=== PATIENT | female | born 1940 ===

== ENCOUNTER 2017-06-02 13:19 | Inpatient (IN) | payer MEDICARE, BC ==
[2017-06-02] MEDS ORDERED: Nitroglycerin 2% Ointment 1 INCH/1 GM Packet ONE (13:36)
[2017-06-02 13:44] LABS: #Basophils 0.1 thou/uL (0.0-0.2); #Lymphocytes 1.6 thou/uL (1.20-3.40); #Monocytes 0.4 thou/uL (0.11-0.59); #Neutrophils 6.1 thou/uL (1.40-6.50); %Basophils 0.8 % (0.0-1.0); %Eosinophils 0.1 % (0.0-10.0); %Lymphocytes 19.3 % (21.0-51.0); %Monocytes 5.1 % (0.0-10.0); %Neutrophils 74.7 % (42.0-75.0); Hemoglobin 15.6 g/dL (12.0-16.0); Mean Corpuscular HGB CONC 34.8 g/dL (32.0-36.0); Mean Corpuscular Hemoglobin 30.2 pg (27.0-31.0); Mean Corpuscular Volume 86.8 fl (81.0-99.0); Mean Platelet Volume 6.8 fL (7.4-10.4); Platelet Count 327 thou/uL (130-400); RBC Distribution Width 12.3 % (11.5-14.5); Red Blood Cell (RBC) Count 5.18 mill/uL (4.20-5.40); White Blood Cell (WBC) Count 8.2 thou/uL (4.8-10.8)
[2017-06-02 13:55] LABS: ALT (SGPT) 32 U/L (8-55); AST (SGOT) 80 U/L (5-34); Albumin 4.7 g/dL (3.4-4.8); Alkaline Phosphatase 118 U/L (40-150); Anion Gap 18 mmol/L (10-20); BUN (Urea Nitrogen) 13 mg/dL (9.8-20.1); Bilirubin, Total 0.6 mg/dL (0.2-1.2); CK (CPK) 804 U/L (29-168); Calc. Creatinine Clearance 0 mL/min (70-130); Calcium 10.7 mg/dL (7.8-10.44); Carbon Dioxide 26 mmol/L (23-31); Chloride 100 mmol/L (98-107); Estimated GFR-MDRD 39; Globulin 4.1 g/dL (2.4-3.5); Glucose 135 mg/dL (83-110); Potassium 3.6 mmol/L (3.5-5.1); Protein, Total 8.8 g/dL (6.0-8.3); Sodium 140 mmol/L (136-145)
[2017-06-02 14:04] LABS: CKMB 119.2 ng/mL (0-6.6); Critical Call Chem Troponin I 0; Troponin I 2.856 ng/mL (< 0.028)
--- NOTE | 2017-06-02 14:11 | RAD ---
CHEST 1 VIEW: HISTORY: Chest pain. FINDINGS: No comparison. Cardiac silhouette is magnified by projection. Pulmonary vasculature is unremarkable . Mediastinum is midline. There is no lobar consolidation or evidence of pneumothorax. Cardiac mon itor leads overlie the chest. IMPRESSION: No active cardiopulmonary abnormalities are demonstrated. POS: MARLENYH
[2017-06-02] MEDS ORDERED: Enoxaparin Sodium 80 MG/0.8 ML SYRINGE ONE (14:32)
[2017-06-02] MEDS ORDERED: Aspirin 81 mg Enteric Coated Tablet PO SCH (17:15)
[2017-06-02 18:02] VITALS: BMI 25.2
[2017-06-02 18:54] LABS: Troponin I 6.818 ng/mL (< 0.028)
[2017-06-02] MEDS ORDERED: Aspirin 325 MG TAB ONE (19:00)
[2017-06-02] MEDS: Acetaminophen 325 MG TAB PO PRN (19:07)
[2017-06-02] MEDS: Sodium Chloride 0.9% 1,000 ML IV SCH (19:08)
[2017-06-02] MEDS ORDERED: Communication Order-Pharmacy FS SCH (19:45)
[2017-06-02] MEDS ORDERED: Lisinopril 2.5 MG TAB PO SCH (20:30)
--- NOTE | 2017-06-02 20:56 | HP ---
DATE OF ADMISSION: 06/02/2017 CHIEF COMPLAINT: Chest pain. HISTORY OF PRESENT ILLNESS: This is a 77-year-old white female with no known past medical history ex cept for ovarian cancer in 1989. She was in her usual state of health at the [facility] yesterday, she d eveloped a sudden onset of chest pain at around 1:00 in the afternoon and she was trying to drive her self to [place] and the chest pain was gone completely, so she returned back home and early this mor colleen around 2:00 a.m., she developed another chest pain which was very severe of 7/10 in intensity, w as located in the left precordium associated with known some nausea, so she took aspirin and Aleve an d she waited out until morning at around 8:30 and called her daughter who came from [place] and she also asked her neighbor about the chest pain, so she was asked to go to the [place] [facility]. Porsha ent went to the [place] [facility] and over there, she had a thorough evaluation of the EKG which was unremarkable according to the ER physician, but did not have a direct communication with the ER phys lindy and there was an elevated troponin of 2.8, so the patient was immediately transferred to [facility] ER for further evaluation. Patient had a repeat troponin when she reached [facility] as a direct admit. She was admi tted to the tele floor and she was noted to have a troponin of 6.8. At this point, Cardiology was im mediately consulted. The patient was seen on the medical floor. She was alert and oriented. She di d not have any chest pain, no nausea, no vomiting, no diarrhea, no constipation at this time. PAST MEDICAL HISTORY: History of ovarian cancer in the past, status post radiation and ovarian remov al. PAST SURGICAL HISTORY: History ovariectomy in the past in 1989. SOCIAL HISTORY: The patient is not a known smoker, but she was exposed to passive smoking from her h usband and her parents. No history of alcohol or history of illicit drug use. FAMILY HISTORY: No significant family history of coronary artery disease or premature deaths in the family. REVIEW OF SYSTEMS: All 12 systems are reviewed with the patient thoroughly and found to be negative at this time except the ones described in HPI. The following complete review of systems was negative , unless otherwise mentioned in the HPI or below: Constitutional: Weight loss or gain, sense of wel l-being, ability to conduct usual activities, exercise tolerance. Skin/Breast: Rash, itching, changes in hair growth or loss, nail changes, breast lumps, tenderness, swelling, nipple discharge. Eyes: Vision, double vision, tearing, blind spots, pain. ENT/Mouth: Headaches (location, time of onset, duration, precipitating factors), vertigo, lightheade dness, injury. Vision, double vision, tearing, blind spots, pain, nose bleeding, colds, obstruction, discharge, dental difficulties, gingival bleeding, dentures, neck stiffness, pain, tenderness, sharon s in thyroid or other areas. Cardiovascular: Precordial pain, substernal distress, palpitations, sy ncope, dyspnea on exertion, orthopnea, nocturnal paroxysmal dyspnea, edema, cyanosis, hypertension, h eart murmurs, varicosities, phlebitis, claudication. Respiratory: Pain, shortness of breath, wheezi ng, stridor, cough, hemoptysis, fever or night sweats. Gastrointestinal: Poor appetite, dysphagia, indigestion, abdominal pain, heartburn, eructation, nausea, vomiting, hematemesis, jaundice, constipa tion, or diarrhea, abnormal stools (mary-colored, tarry, bloody, greasy, foul smelling), flatulence, hemorrhoids, recent changes in bowel habits. Genitourinary: Urgency, frequency, dysuria, nocturia, hematuria, polyuria, oliguria, unusual (or change in) color of urine, stones, hesitancy, change in si ze of stream, dribbling, acute retention or incontinence, libido, potency. Musculoskeletal: Pain, s welling, redness or heat of muscles or joints, limitation, of motion, muscular weakness, atrophy, aircraft quality control inspector mps. Neurologic/Psychiatric: Convulsions, paralyses, tremor, incoordination, parasthesias, difficulties w ith memory of speech, sensory or motor disturbances, or muscular coordination (ataxia, tremor), emoti onal problems, anxiety, depression, previous psychiatric care, unusual perceptions, hallucinations. Allergy/Immunologic: Skin rash, anemia, bleeding tendency, polydipsia, polyuria, intolerance to heat or cold. PHYSICAL EXAMINATION: VITAL SIGNS: Blood pressures are 141/74, heart rate is 88, respirations 20, saturation 96%. GENERAL: The patient is moderately built and moderately nourished. She does not appear to be in acu te distress at this time. She is alert, oriented x3. HEENT: Atraumatic, normocephalic, PERRLA. Extraocular muscles are intact. Oral mucosa pink and abdirashid st. CARDIOVASCULAR: S1, S2 normal. No murmurs, rubs or gallops. LUNGS: Bilateral air entry was equal. No wheezing, no crackles. ABDOMEN: Soft, nontender, no guarding, no rebound tenderness. Bowel sounds normal. MUSCULOSKELETAL: No calf tenderness. No pedal edema. No joint tenderness. No joint swelling. SKIN: No cyanosis, no erythema, no rash, no pallor. CENTRAL NERVOUS SYSTEM: Cranial nerve examination II-XII intact. No focal deficits were noted. PSYCHIATRIC: No signs of suicidal ideation. No signs of garrett. NECK: No thyromegaly. No JVD was noted. LABORATORY DATA: 1. Sodium 140, potassium 3.6, chloride is 100, bicarbonate is 26, BUN is 13, creatinine 1.31, blood sugar is 135, AST is 80, ALT is 32. 2. BNP was 106 and troponin most recent was 6.8. 3. WBC 8.2, hemoglobin 15.6, hematocrit is 44.9, platelets are 327. ASSESSMENT AND PLAN: 1. Ncl-IU-jkrvsig elevation myocardial infarction. 2. Acute chest pain. 3. Acute kidney injury. 4. Hypertension, undiagnosed. PLAN: 1. Plan is to start the patient on Lovenox 1 mg/kg b.i.d. and start the patient on Coreg at 3.125 mg p.o. b.i.d. and start her on aspirin right away. Cardiology has been consulted and they planned to do the cath in the morning. Plan to keep the patient n.p.o. at this time and will start the patient on IV fluids at 100 mL hour. 2. The patient has elevated blood pressures. We will start the patient on CORETTA inhibitor and lisinop ril to keep the blood pressure less than 125/80. 3. DVT prophylaxis. Lovenox as above. I spent 75 minutes with this patient.
[2017-06-02] MEDS ORDERED: Enoxaparin Sodium 80 MG/0.8 ML SYRINGE SC SCH (21:00)
[2017-06-02] MEDS ORDERED: Famotidine 20 MG TAB PO SCH (21:00)
[2017-06-02] MEDS: Carvedilol 3.125 MG TAB PO SCH (21:11)
[2017-06-02 21:44] LABS: Troponin I 9.474 ng/mL (< 0.028)
[2017-06-02] MEDS ORDERED: Nitroglycerin 2% Ointment 1 INCH/1 GM Packet TOP SCH (22:00)
--- NOTE | 2017-06-02 22:29 | CON ---
DATE OF CONSULTATION: 06/02/2017 DATE OF ADMISSION: 06/02/2017 INDICATION FOR CONSULTATION: A 77-year-old female with ljq-XV-qczffod-elevation myocardial infarctio n. HISTORY OF PRESENT ILLNESS: This is a very pleasant 77-year-old female who has had no previous cardi ac history was in [place] yesterday, when she noted she has some chest tightness. It kind of eased up a little bit. She drove home. By the time she got home, it was feeling good. She felt good for th e rest of the day and then about 2:00 a.m. this morning, she had more pain, which she describes as be ing a dull-type pressure. 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 Her EKG does not show any acute changes, some nonspecific change in the anterior leads however. Her cardiac enzymes show a tro ponin I of 2.8, which has increased up to 6.8, this is somewhat unusual; has an MB of 119 with a CPK of 804. 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 The troponin I is out of proportion to the MB. Otherwise, she is stable at this time and says she only feels susi e minimal discomfort. PAST MEDICAL HISTORY: Significant for the ovarian cancer in 1996 when she underwent surgery and chem otherapy, no radiation. She had a hysterectomy. SOCIAL HISTORY: She is a . She has 1 child, age 58, who is alive and well. She had no alcohol or tobacco abuse. 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 FAMILY HISTORY: Unremarkable for any early heart disease. MEDICATIONS: Only include supplements and aspirin every day. ALLERGIES: She is allergic to PEROXIDE. REVIEW OF SYSTEMS: Twelve-point review of systems is unremarkable. She says she is actually a very healthy person and has not had any significant discomfort like this before. PHYSICAL EXAMINATION: GENERAL: Reveals a well-developed, well-nourished female. VITAL SIGNS: Her blood pressure is elevated at 175/90, earlier was 181/88; heart rate is 81 and regu lar. She is afebrile. HEENT: Shows the head to be normocephalic and atraumatic. NECK: Carotid pulses are present. There were no bruits. There was no JVD. The thyroid was not enl arged. Her mucosa was pink and moist. CHEST: Clear to auscultation without rales, rhonchi, or wheezing. CARDIOVASCULAR: Reveals a regular rate and rhythm with normal S1, S2. There were no S3, S4. There were no significant murmurs, heaves, thrills, bruits, or rubs noted. Femoral pulses are present. ABDOMEN: Soft and nontender with positive bowel sounds. No organomegaly or masses are noted. EXTREMITIES: Showed no clubbing, cyanosis, or edema. Pedal pulses are present. Radial pulses are p resent. NEUROLOGIC: The patient is fully intact with normal strength and tone. SKIN: Warm and dry. LABORATORY DATA: Her EKG shows a normal sinus rhythm with nonspecific changes noted above. Her labo ratory data shows a hemoglobin of 15.6, creatinine is 1.31, potassium is 3.6. Her blood sugar was 13 5, calcium was elevated at 10.7. Her BNP was 107. Cardiac enzymes showed a CPK of 804, MB of 119. Troponin I is now increased up to 6.8. IMPRESSION: Probable zob-QH-nsouvti-elevation myocardial infarction. I have advised her to undergo cardiac catheterization tomorrow morning. She is very comfortable. At this time, we will continue t o watch her. She has been given Lovenox. We will continue these medications, Lovenox and aspirin. She will also need to have medications for her blood pressure. She has been started on Coreg 3.125 m g b.i.d. and she also has nitroglycerin. Should she become unstable tonight, she may need to go to t skill labor earlier. Otherwise, we will wait until tomorrow morning and she will need to undergo [facility] catheterization. I have explained the procedure and the risks to her to include bleeding, infec tion, possibly a myocardial infarction, CVA, renal insufficiency, allergic contrast reaction, and darshan n possibility of . She understands and agrees to proceed. We will plan for cardiac catheteriza tion tomorrow.
[2017-06-02 23:12] LABS: Hemoglobin 13.8 g/dL (12.0-16.0); Platelet Count 294 thou/uL (130-400)
[2017-06-02] MEDS: Morphine 4 MG/ML VIAL SLOW IVP PRN (23:40)
[2017-06-03 05:26] LABS: #Lymphocytes 1.1 thou/uL (1.20-3.40); #Monocytes 0.6 thou/uL (0.11-0.59); #Neutrophils 5.6 thou/uL (1.40-6.50); %Basophils 0.4 % (0.0-1.0); %Eosinophils 0.5 % (0.0-10.0); %Lymphocytes 15.2 % (21.0-51.0); %Monocytes 8.2 % (0.0-10.0); %Neutrophils 75.7 % (42.0-75.0); Hemoglobin 13.9 g/dL (12.0-16.0); Mean Corpuscular HGB CONC 33.3 g/dL (32.0-36.0); Mean Corpuscular Hemoglobin 30.3 pg (27.0-31.0); Mean Corpuscular Volume 90.8 fl (81.0-99.0); Mean Platelet Volume 6.6 fL (7.4-10.4); Platelet Count 297 thou/uL (130-400); RBC Distribution Width 12.7 % (11.5-14.5); Red Blood Cell (RBC) Count 4.58 mill/uL (4.20-5.40); White Blood Cell (WBC) Count 7.4 thou/uL (4.8-10.8)
[2017-06-03 05:36] LABS: Anion Gap 15 mmol/L (10-20); BUN (Urea Nitrogen) 14 mg/dL (9.8-20.1); Calc. Creatinine Clearance 60 mL/min (70-130); Calcium 9.4 mg/dL (7.8-10.44); Carbon Dioxide 23 mmol/L (23-31); Cardiac Risk 4.2 (Less than 4.5); Chloride 105 mmol/L (98-107); Cholesterol 255 mg/dl (< 200 Desired); Estimated GFR-MDRD 62; Glucose 114 mg/dL (83-110); HDL Cholesterol 61 mg/dL (>60 Neg Risk); LDL Cholesterol, Calculated 163 mg/dL; Potassium 3.7 mmol/L (3.5-5.1); Sodium 139 mmol/L (136-145); Triglycerides 153 mg/dL (Less than 150)
[2017-06-03] MEDS ORDERED: Lidocaine 1% (PF) 30 ML VIAL ONE (06:01)
[2017-06-03] MEDS: Carvedilol 3.125 MG TAB PO SCH ×2 (06:02→19:58)
[2017-06-03] MEDS: Lisinopril 2.5 MG TAB PO SCH (06:02)
[2017-06-03] MEDS: Sodium Chloride 0.9% 1,000 ML IV SCH ×2 (06:03→17:48)
[2017-06-03 07:05] LABS: Troponin I 14.925 ng/mL (< 0.028)
[2017-06-03] MEDS ORDERED: Nitroglycerin 100MG/250ML BOT 250 ML ONE (07:06)
[2017-06-03] MEDS ORDERED: Heparin 10,000 UNITS/1 ML VIAL ONE (07:06)
[2017-06-03] MEDS ORDERED: Verapamil 5 MG/2 ML VIAL ONE (07:06)
[2017-06-03] MEDS ORDERED: Sodium Chloride 0.9% 200 ML IV SCH (08:01)
[2017-06-03] MEDS ORDERED: Acetaminophen/Codeine 30-300mg Tablet PO PRN ×2 (08:01)
[2017-06-03] MEDS ORDERED: Nitroglycerin 0.4 MG TAB (25 Tab Bottle) SL PRN (08:01)
[2017-06-03] MEDS ORDERED: traMADol HCl 50 MG TAB PO PRN (08:01)
[2017-06-03] MEDS ORDERED: Aspirin 325 MG TAB PO SCH (09:00)
[2017-06-03] MEDS ORDERED: Enoxaparin Sodium 60 MG/0.6 ML SYRINGE SC SCH (09:00)
[2017-06-03] MEDS ORDERED: Prevnar 13-Val Conj/PF 0.5 ML SYRINGE IM ONE (09:00)
[2017-06-03] MEDS ORDERED: Enoxaparin Sodium 40 MG/0.4 ML SYRINGE SC SCH (09:00)
[2017-06-03] MEDS ORDERED: Enoxaparin Sodium 80 MG/0.8 ML SYRINGE SC SCH (09:00)
[2017-06-03] MEDS ORDERED: Iopamidol 370 76% 100 ML VIAL ONE (09:31)
[2017-06-03] MEDS ORDERED: Communication Order-Pharmacy FS SCH (18:18)
--- NOTE | 2017-06-03 19:10 | CON ---
DATE OF CONSULTATION: 06/03/2017 REQUESTING PHYSICIAN: Gabby Montanez M.D. CHIEF COMPLAINT: Chest pain. HISTORY OF PRESENT ILLNESS: The patient is a 77-year-old woman, who is a long- term survivor of stage III ovarian cancer, but has scant other past medical history. 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 The day before yesterday while at buddhism, she began developing a chest pressure or tightness. She left [place] with an intention of going to the hospital in [place], but before she made it there her discomfort had resolved and she decided to go on home. About 2:00 yesterday morning; however, she awoke with another episode of chest pressure that lasted several hours. 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 Upon arrival, her troponins were already positive and she was transferred here for further evaluation. While her initial CPK was around 800, her troponin is only 2.856. As of about 4 :30 of this morning, it was still rising, but was still only at 14.925. She has had so far an uncomplicated post-infarction course. She denies any previous such episodes. PAST MEDICAL HISTORY: Significant for ovarian cancer. She underwent hysterectomy and oophorectomy with chemotherapy and radiation therapy in 1989. CURRENT MEDICATIONS: Her current medicines are Adult Aspirin a day, Lipitor 20 mg at bedtime, Coreg 3.125 mg b.i.d., lisinopril 2.5 mg a day, Lovenox 70 mg subcutaneously b.i.d., Pepcid 20 mg at bedtime and p.r.n. morphine and nitroglycerin. SOCIAL HISTORY: Her smoked, but he at around that same time and she has not been exposed to secondhand smoke since then and does not smoke herself. MEDICATIONS: The only medication that she takes is aspirin a day and some vitamin supplements. ALLERGIES: She denies any medical allergies. FAMILY HISTORY: Both of her parents of cancer. She has no known history of premature coronary artery disease. REVIEW OF SYSTEMS: Negative for any transient eye, speech, facial or extremity symptoms consistent with transient ischemic attacks. Negative for claudication. Negative for shortness of breath. Negative for any weight loss. Negative for any development of adenopathy or other lumps or bumps popping up anywhere. She has some mild numbness in her hands and her feet that she ascribes to her Taxol chemotherapy. PHYSICAL EXAMINATION: GENERAL: She is a healthy appearing woman, in no distress. VITAL SIGNS: Heart rate 73, blood pressure 156/74, height is 5 feet 6 inches, weight is 156-1/4 pounds, room air O2 sats have been in the mid to high 90s. NECK: No JVD, no carotid bruits. LUNGS: Clear to auscultation. CARDIOVASCULAR: She has regular rate and rhythm without murmur or gallop. ABDOMEN: Soft and nontender with a well healed surgical scar in the vertical midline. EXTREMITIES: She has a pressure dressing on the right wrist. She has palpable left radial bilateral femoral, bilateral dorsalis pedis and bilateral posterior tibial pulses. She has no obvious varicosities. No clubbing, cyanosis or edema. NEUROLOGIC: Grossly nonfocal. LABORATORY DATA: White count of 8.2, hemoglobin 15.6, hematocrit 44.9, platelets 327,000. Sodium 140, potassium 3.6, chloride 100, CO2 of 26, glucose 135, BUN 13, creatinine 1.31. Overnight, her BUN fell to 14 and creatinine to 0.84. LFTs were normal. Protein is 8.8, albumin 4.7, and calcium 10.7. Her initial CPK was 804 and CK-MB was 119.2. Troponin is 2.856. BNP was 107.6 that was roughly 1:30 in the afternoon. On Friday at about 6:00 p.m., her troponin was 6.818, around 9:00 p.m. it was 9.474, and about 4:30 this morning it was 14.925. Fasting lipids showed triglycerides 153, cholesterol 255, LDL 163, HDL 61. IMAGING: Her EKG was sinus rhythm with some mild ST depression in leads V2 through V4. Her chest x-ray shows relatively small heart, sharp aortic knob without obvious calcifications and perhaps some mild-moderate edema. Her cardiac catheterization shows right dominant system with a normal left main. She has mild ostial circumflex disease, but then her circumflex occludes just beyond a very small OM1 followed by an atrial branch. One can on followup films see a little bit of hang up of dye distally. The LAD has a relatively high good sized first diagonal that comes off at about the level of the first septal tool repair technician with about a 60% to 70%, LAD lesion at that same level in about 60% to 70% proximal lesion in that first diagonal. There is about 70% or 80% lesion in the second diagonal at its ostium and about of 60% lesion in its mid portion. The second diagonal arborizes in multiple small branches. There is some mild disease in the LAD just beyond that second diagonal. The right coronary is a very large vessel that gives rise to large PDA and posterolateral system fairly proximally. There is a long 40 % to 50% lesion in between the acute marginals. There is some mild luminal irregularity in the mid portion beyond that. Distally, there is a long 40% or 50% lesion prior to coming to the tracks. LVEF is around 60% with some inferoapical and perhaps some distal septal akinesis. IMPRESSION AND RECOMMENDATIONS: A 3-vessel coronary disease with preserved left ventricular function in spite of her recent infarction. Left ventricular end-diastolic pressure is only about 10 in spite of the picture of edema on her chest x-ray. I think she would be a good candidate for surgical revascularization and will schedule her in next elective opening. EDISON
[2017-06-03] MEDS ORDERED: Atorvastatin Calcium 20 MG TAB PO SCH (21:00)
--- NOTE | 2017-06-03 21:31 | PDOC.PN ---
- Subjective Encounter Start Date: 06/03/17 Encounter Start Time: 17:00 Patient seen and examined. No new complaints. No overnight events. No CP/SOB. s/ p Cath - Objective Resuscitation Status: Resuscitation Status FULL:Full Resuscitation MAR Reviewed: Yes Vital Signs & Weight: Vital Signs (12 hours) Temp Pulse Resp BP Pulse Ox 06/03/17 19:58 98.4 F 93 16 148/74 H 95 06/03/17 11:56 98.6 F 73 16 156/74 H 94 L Weight Weight 156 lb 3.2 oz I&O: 06/02/17 06/03/17 06/04/17 06:59 06:59 06:59 Intake Total 1331.5 Output Total 600 Balance 731.5 Result Diagrams: 06/03/17 21:52 06/03/17 04:26 Additional Labs: Laboratory Tests 06/03/17 06/03/17 06/03/17 04:26 04:26 04:26 Magnesium 2.0 Troponin I 14.925 H* Triglycerides 153 H Cholesterol 255 H Radiology Reviewed by me: Yes (CXR - Negative) EKG Reviewed by me: Yes (Tele SR) Phys Exam - Physical Examination Constitutional: NAD HEENT: PERRLA, sclera anicteric Neck: no nodes, no JVD, supple Respiratory: no wheezing, no rales, no rhonchi, clear to auscultation bilateral Cardiovascular: RRR, no rub no heaves/pulsations Gastrointestinal: soft, non-tender, no distention, positive bowel sounds Musculoskeletal: no edema, pulses present Neurological: non-focal, normal sensation, moves all 4 limbs Psychiatric: normal affect, A&O x 3 Skin: no rash Dx/Plan - Plan DVT proph w/SCDs IMPRESSION: 1. NSTEMI 2. Dyslipidemia 3. HTN 4. JOSIAH/CKD 2 - improving PLAN: * s/p Cardiac Cath * CT consulted for 3V disease * Cont to monitor * Cont current meds as below * Cont Betablockers/ACEI/Statins Review of Systems - Review of Systems Respiratory: negative: Cough, Dry, Shortness of Breath, Hemoptysis, SOB with Excertion, Pleuritic Pain, Sputum, Wheezing Cardiovascular: negative: chest pain, palpitations, orthopnea, paroxysmal nocturnal dyspnea, edema, light headedness, other Gastrointestinal: negative: Nausea, Vomiting, Abdominal Pain, Diarrhea, Constipation, Melena, Hematochezia, Other - Medications/Allergies Allergies/Adverse Reactions: Allergies Allergy/AdvReac Type Severity Reaction Status Date / Time No Known Drug Allergies Allergy Verified 06/02/17 17:08 Medications: Current Medications Carvedilol (Coreg) 3.125 mg PO BID PENNY Stop: 06/04/17 12:00 Last Admin: 06/03/17 19:58 Dose: 3.125 mg Lisinopril (Zestril) 2.5 mg PO DAILY PENNY Stop: 06/04/17 12:00 Last Admin: 06/03/17 06:02 Dose: 2.5 mg Miscellaneous Information (Communication Order-Pharmacy) 1 each FS ONE PENNY Stop: 06/04/17 10:00
[2017-06-03 22:09] LABS: Hemoglobin 14.1 g/dL (12.0-16.0); Platelet Count 312 thou/uL (130-400)
[2017-06-04] MEDS: Acetaminophen 325 MG TAB PO PRN (03:10)
[2017-06-04] MEDS ORDERED: Morphine 4 MG/ML VIAL ONE (04:06)
[2017-06-04] MEDS: Morphine 4 MG/ML VIAL SLOW IVP PRN (04:11)
[2017-06-04] MEDS ORDERED: Nitroglycerin 0.4 MG TAB (25 Tab Bottle) ONE (04:33)
[2017-06-04] MEDS: Nitroglycerin 0.4 MG TAB (25 Tab Bottle) SL PRN ×2 (04:35→04:43)
[2017-06-04] MEDS ORDERED: CEFAZOLIN/Water 2 GM/20 ML SYRINGE SLOW IVP SCH (06:45)
[2017-06-04] MEDS ORDERED: Nitroglycerin 50 MG/250 ML BOT 250 ML IVPB SCH (06:45)
[2017-06-04] MEDS ORDERED: Heparin 10,000 UNITS/1 ML VIAL 30,000 UNITS in Sodium Chloride 0.9% 1,000 ML FS SCH (06:45)
[2017-06-04] MEDS: Carvedilol 3.125 MG TAB PO SCH (06:58)
[2017-06-04] MEDS: Lisinopril 2.5 MG TAB PO SCH (06:58)
[2017-06-04 08:03] LABS: INR-International Normal Ratio 1.2; PTT 33.8 SEC (22.9-36.1)
[2017-06-04] MEDS ORDERED: Papaverine 60 MG/2 ML VIAL ONE (12:36)
[2017-06-04] MEDS ORDERED: Heparin 30,000 units/30 ml VIAL ONE (12:36)
[2017-06-04] MEDS ORDERED: PROPOFOL 200 MG/20 ML VIAL ONE (12:36)
[2017-06-04] MEDS ORDERED: Sodium Bicarb 50 MEQ/50 ML VIAL ONE (12:36)
[2017-06-04] MEDS ORDERED: Cardioplegic Soln 1,000 ML BAG ONE (12:36)
[2017-06-04] MEDS ORDERED: Vecuronium Bromide 20 MG VIAL ONE (12:36)
[2017-06-04] MEDS ORDERED: PHENYLEPHRINE-NS 100 MCG/ML 10 ML SYRINGE ONE (12:36)
[2017-06-04] MEDS ORDERED: Aminocaproic Acid 5 GM/20 ML VIAL ONE (12:36)
[2017-06-04] MEDS ORDERED: Lidocaine 1% PF 5 ML VIAL ONE (12:36)
--- NOTE | 2017-06-04 13:25 | CON ---
DATE OF CONSULTATION: 06/04/2017 HISTORY OF PRESENT ILLNESS: Ms. Garcia is a very pleasant 77-year-old female. She is tentatively o n schedule for coronary artery bypass grafting today. I am seeing her because of her presence of the Critical Care Unit. She presented on 06/02/2017 with chest discomfort that was waxing and waning. She came in at 2:00 in the morning. EKG did not show any ST elevation. She has undergone cardiac catheterization. Surgery has been recommended. She is on the schedule for surgery later today. She denies having any chest discomfort at this time. PAST MEDICAL HISTORY: Significant for, 1. Ovarian cancer treated with surgery and chemotherapy. 2. Status post hysterectomy. SOCIAL HISTORY: She is not a smoker, not a drinker. She does not use drugs. FAMILY HISTORY: She lost her . She has one child, who is healthy. MEDICAITONS: She is on no medications except aspirin prior to admission. ALLERGIES: She reports no medication allergies. REVIEW OF SYSTEMS: Twelve point review of systems is otherwise negative. PHYSICAL EXAMINATION: GENERAL: She is flat in bed, in no distress. VITAL SIGNS: Heart rate is 72, blood pressure 147/74, respiratory rate 16, oximetry is 95. HEENT: Pupils are equal. Sclerae anicteric. NECK: Supple, no lymphadenopathy. LUNGS: Clear. HEART: Regular rhythm. S1 and S2 are normal. I do not hear a murmur. ABDOMEN: Soft and nontender. EXTREMITIES: No clubbing, cyanosis, or edema. LABORATORY DATA: White count 7.4, hemoglobin 13.9, platelets 297. Sodium 139, potassium 3.7, chloride 105, bicarbonate 23, BUN 14, creatinine 0.8, glucose 114. Tropon in got up to 14.9, triglycerides 153, cholesterol 255, LDL 163, HDL 61. IMPRESSION: Coronary artery disease, tentatively on schedule for bypass surgery today. She appears to be stable and pain free at this point in time. This is a 50 minute consult, greater than 50% of the time was spent on the unit coordinating care.
[2017-06-04] MEDS ORDERED: Vecuronium 10 MG VIAL ONE (15:59)
[2017-06-04] MEDS ORDERED: Midazolam HCl 5 mg/5 ml Vial ONE (15:59)
[2017-06-04] MEDS ORDERED: Nitroglycerin 50 MG/250 ML BOT 250 ML ONE (16:00)
[2017-06-04] MEDS ORDERED: Norepinephrine 8 MG/0.9% NS 250 ML ONE (16:00)
[2017-06-04] MEDS ORDERED: Fentanyl 250 MCG/5 ML VIAL ONE (16:03)
[2017-06-04] MEDS ORDERED: Phenylephrine HCL 10 MG/ML VIAL ONE (16:03)
[2017-06-04] MEDS ORDERED: niCARdipine HCl 25 MG in Sodium Chloride 0.9% 250 ML 240 ML IVPB PRN (16:06)
[2017-06-04] MEDS ORDERED: Norepinephrine 8 MG/0.9% NS 250 ML IVPB PRN (16:06)
[2017-06-04] MEDS ORDERED: Nitroglycerin 50 MG/250 ML BOT 250 ML IVPB PRN (16:06)
[2017-06-04] MEDS ORDERED: Ondansetron HCl/PF 4 MG/2 ML Vial IVP PRN (16:06)
[2017-06-04] MEDS ORDERED: Bisacodyl 10 MG SUPP PR PRN (16:06)
[2017-06-04] MEDS ORDERED: Mag-Al 1200 mg/1200 mg/30 ML UDCUP PO PRN (16:06)
[2017-06-04] MEDS ORDERED: Acetaminophen 325 MG TAB PO PRN (16:06)
[2017-06-04] MEDS ORDERED: Fentanyl 100 MCG/2 ML VIAL SLOW IVP PRN ×2 (16:06)
[2017-06-04] MEDS ORDERED: Hetastarch 6% 500 ML 500 ML IVPB PRN (16:06)
[2017-06-04] MEDS ORDERED: hydrALAZINE 20 MG/ML VIAL SLOW IVP PRN (16:06)
[2017-06-04] MEDS ORDERED: Promethazine HCl 25 MG/ML VIAL IM PRN (16:06)
[2017-06-04] MEDS ORDERED: Post-Op Insulin Drip Protocol IVPB ONE (16:06)
[2017-06-04] MEDS ORDERED: Guaifenesin DM 100-10/5 ML UDCUP PO PRN (16:06)
[2017-06-04] MEDS ORDERED: Dextrose 5% in Water 1,000 ML IV PRN (16:21)
[2017-06-04] MEDS ORDERED: Dextrose 50% Abboject 50 ML SYRINGE SLOW IVP PRN (16:21)
[2017-06-04] MEDS ORDERED: Ketorolac Tromethamine 30 MG/ML VIAL IVP SCH (18:00)
[2017-06-04] MEDS ORDERED: Albumin 5% 500 ML ONE (18:29)
[2017-06-04] MEDS: Atorvastatin Calcium 20 MG TAB PO SCH (21:05)
--- NOTE | 2017-06-04 21:06 | PDOC.PN ---
- Subjective Encounter Start Date: 06/04/17 Encounter Start Time: 14:50 Patient seen and examined. No new complaints. Overnight events noted. On NTG drip for CP - Objective Resuscitation Status: Resuscitation Status FULL:Full Resuscitation MAR Reviewed: Yes Vital Signs & Weight: Vital Signs (12 hours) Temp Pulse Resp Pulse Ox 06/04/17 16:00 98.7 F 06/04/17 11:00 98.4 F 06/04/17 09:39 98.9 F 70 18 100 Weight Weight 160 lb 3.2 oz Most Recent Monitor Data Heart Rate from ECG 79 NIBP 150/68 NIBP BP-Mean 91 Respiration from ECG 16 SpO2 95 I&O: 06/03/17 06/04/17 06/05/17 06:59 06:59 06:59 Intake Total 1331.5 1200 36 Output Total 600 1100 400 Balance 731.5 100 -364 Result Diagrams: 06/05/17 04:40 06/05/17 03:45 Additional Labs: Accuchecks 06/04/17 06/04/17 06/04/17 19:40 18:50 17:51 POC Glucose 139 H 128 H 117 H 06/04/17 17:05 POC Glucose 111 H EKG Reviewed by me: Yes (Tele SR) Phys Exam - Physical Examination Constitutional: NAD Respiratory: no wheezing, no rales, no rhonchi Cardiovascular: RRR, no rub Gastrointestinal: soft, non-tender, positive bowel sounds Musculoskeletal: no edema Neurological: moves all 4 limbs Dx/Plan - Plan cont current plan of care, DVT proph w/SCDs IMPRESSION: 1. NSTEMI 2. Dyslipidemia 3. HTN 4. JOSIAH/CKD 2 - improving PLAN: * for CABG today * On NTG drip * Cont to monitor * Cont current meds as below * Cont Betablockers/ACEI/Statins Review of Systems - Review of Systems Respiratory: negative: Cough, Dry, Shortness of Breath, Hemoptysis, SOB with Excertion, Pleuritic Pain, Sputum, Wheezing Cardiovascular: chest pain (earlier today). negative: palpitations, orthopnea, paroxysmal nocturnal dyspnea, edema, light headedness, other - Medications/Allergies Allergies/Adverse Reactions: Allergies Allergy/AdvReac Type Severity Reaction Status Date / Time No Known Drug Allergies Allergy Verified 06/02/17 17:08 Medications: Current Medications Acetaminophen (Tylenol) 650 mg PO Q6H PRN PRN Reason: Headache/Fever Or Mild Pain Hydrocodone Bitart/Acetaminophen ([place] 5/325) 1 tab PO Q4H PRN PRN Reason: Moderate Pain (4-6) Hydrocodone Bitart/Acetaminophen ([place] 5/325) 2 tab PO Q4H PRN PRN Reason: Severe Pain (7-10) Al Hydroxide/Mg Hydroxide (Maalox) 30 ml PO Q4H PRN PRN Reason: Indigestion Albumin Human (Albumin 5%) 12.5 gm IVPB Q6H PRN PRN Reason: To Maintain SBP> 90 mmHG Stop: 06/05/17 16:07 Albumin Human (Albumin 5%) 25 gm IVPB Q6H PRN PRN Reason: To Maintain SBP > 90 mmHG Stop: 06/05/17 16:07 Albuterol/Ipratropium (Duoneb) 3 ml NEB [id number] PRN PRN Reason: SHORTNESS OF BREATH Aspirin (Aspirin) 325 mg PO DAILY [facility] Atorvastatin Calcium (Lipitor) 20 mg PO HS PENNY Last Admin: 06/04/17 21:05 Dose: Not Given Bisacodyl (Dulcolax) 10 mg PO Q12H PRN PRN Reason: Constipation Bisacodyl (Dulcolax) 10 mg IN Q12H PRN PRN Reason: Constipation Dextrose/Water (Dextrose 50%) 25 gm SLOW IVP PRN PRN PRN Reason: PER HYPOGLYCEMIC PROTOCOL Famotidine (Pepcid) 20 mg SLOW IVP Q12HR [facility] Fentanyl (Sublimaze) 25 mcg SLOW IVP Q2H PRN PRN Reason: Moderate Pain (4-6) Stop: 06/06/17 16:06 Fentanyl (Sublimaze) 50 mcg SLOW IVP Q2H PRN PRN Reason: Severe Pain (7-10) Stop: 06/06/17 16:06 Glucagon (Glucagon) 1 mg SC PRN PRN PRN Reason: PER HYPOGLYCEMIC PROTOCOL Guaifenesin/Dextromethorphan (Robitussin Dm) 15 ml PO Q4H PRN PRN Reason: Cough Hydralazine HCl (Apresoline) 10 mg SLOW IVP Q6H PRN PRN Reason: To Maintain SBP< 140mmHG Nitroglycerin/Dextrose (Nitroglycerin 50 Mg/250 Ml Bot) 250 mls @ 0 mls/hr IVPB INF PENNY; As Directed PRN Reason: Protocol Last Admin: 06/04/17 07:15 Dose: 250 mls Hetastarch/Sodium Chloride (Hespan) 500 mls @ 0 mls/hr IVPB PRN PRN; As Directed PRN Reason: To Maintain SBP > 90mmHg Stop: 06/05/17 16:06 Norepinephrine Bitartrate (Levophed) 250 mls @ 0 mls/hr IVPB PRN PRN; Protocol ; Titrate PRN Reason: To maintain SBP > 90 mmHG Nicardipine HCl 25 mg/ Sodium (Chloride) 250 mls @ 0 mls/hr IVPB INF PRN; Protocol; Titrate PRN Reason: To Maintain SBP< 140mmHG Nitroglycerin/Dextrose (Nitroglycerin 50 Mg/250 Ml Bot) 250 mls @ 0 mls/hr IVPB PRN PRN; Protocol; Titrate PRN Reason: To Maintain SBP< 140mmHG Sodium Chloride (Normal Saline 0.9%) 1,000 mls @ 75 mls/hr IV .[id number] [facility] Insulin Human Regular 100 (units/ Sodium Chloride) 101 mls @ 0 mls/hr IVPB INF PENNY; As Directed PRN Reason: Protocol Dextrose/Water (D5w) 1,000 mls @ 0 mls/hr IV INF PRN; As Directed PRN Reason: PRN HYPOGLYCEMIC PROTOCOL Insulin Human Regular (Humulin R) 0 units SC Q4H PRN; Protocol PRN Reason: POST OP SLIDING SCALE Ketorolac Tromethamine (Toradol) 15 mg IVP Q6HR [facility] Stop: 06/05/17 12:01 Morphine Sulfate (Morphine) 2 mg SLOW IVP Q15MIN PRN PRN Reason: Severe Pain (7-10) Ondansetron HCl (Zofran) 4 mg IVP Q6H PRN PRN Reason: Nausea/Vomiting Potassium Chloride (Kcl) 20 meq IVPB PRN PRN PRN Reason: K level </= 4.0 Promethazine HCl (Phenergan) 6.25 mg IM Q4H PRN PRN Reason: Nausea/Vomiting Sodium Chloride (Flush - Normal Saline) 10 ml IVF Q12HR [facility] Last Admin: 06/04/17 08:37 Dose: 10 ml Sodium Chloride (Flush - Normal Saline) 10 ml IVF PRN PRN PRN Reason: Saline Flush
--- NOTE | 2017-06-04 21:34 | RAD ---
CHEST ONE VIEW 06/04/17 HISTORY: Needle count off. COMPARISON: 06/02/17 FINDINGS: There appears to be an endotracheal tube just proximal to the clavicle. There is what is presumed to be a scope in the thoracic esophagus. Sternotomy wires, mediastinal drainage catheter, two left sided chest tubes are noted. Surgical clips project over the left hilum. Left sided transvenous pacemaker is identified. No obvious suture is appreciated. No pneumothorax. IMPRESSION: Postoperative changes as above. An obvious retained suture needle is not appreciated. POS: [facility]
[2017-06-04 21:51] LABS: INR-International Normal Ratio 1.5; PTT 32.6 SEC (22.9-36.1); Prothrombin Time 18.4 SEC (12.0-14.7)
[2017-06-04 21:53] LABS: #Eosinphils 0.1 thou/uL (0.0-0.7); #Monocytes 0.9 thou/uL (0.11-0.59); #Neutrophils 11.9 thou/uL (1.40-6.50); %Eosinophils 0.5 % (0.0-10.0); %Lymphocytes 6.8 % (21.0-51.0); %Monocytes 6.3 % (0.0-10.0); %Neutrophils 86.3 % (42.0-75.0); Hemoglobin 10.3 g/dL (12.0-16.0); Mean Corpuscular HGB CONC 33.3 g/dL (32.0-36.0); Mean Corpuscular Hemoglobin 30.8 pg (27.0-31.0); Mean Corpuscular Volume 92.5 fl (81.0-99.0); Platelet Count 175 thou/uL (130-400); RBC Distribution Width 12.4 % (11.5-14.5); Red Blood Cell (RBC) Count 3.34 mill/uL (4.20-5.40); White Blood Cell (WBC) Count 13.8 thou/uL (4.8-10.8)
--- NOTE | 2017-06-04 21:55 | RAD ---
ONE VIEW CHEST: 06/04/17 COMPARISON: 06/04/17 at 8:20 p.m. HISTORY: Status post open heart surgery. FINDINGS: There has been interval removal of what is presumed to be a device in the esophagus. Endotracheal tub e is demonstrated. Stable left sided central venous catheter appears stable. Mediastinal drainage cat heter and two separate left sided chest tubes. Sternotomy wires and mediastinal clips are identified. There are pleural and parenchymal changes in the left hemithorax. Linear opacities projecting over t he right heart border as well as the midline of the cardiac silhouette are presumed to be due to sutu re material/epicardial pacer wires. Horizontally oriented as well as vertically oriented linear densities project over the left and right epigastric region. Correlate clinically. IMPRESSION: 1. Findings consistent with recent open heart surgery. 2. Pleural and parenchymal changes in the left lung base. 3. Linear opacities in the epigastric region. Correlate clinically. Code T POS: [facility]
[2017-06-04 22:01] LABS: Actual Bicarbonate (HCO3a) 19.7 mEq/L (22-26); Base Excess (BEa) -3.8 mEq/L (0 (+/-) 2.5); CO2 Tension 30.3 mmHg (35.0-45.0); O2 Tension (PaO2) 88.2 mmHg (80.0-100.0); pH, Arterial 7.43 (7.35-7.45)
[2017-06-04 22:01] LABS: Anion Gap 11 mmol/L (10-20); BUN (Urea Nitrogen) 15 mg/dL (9.8-20.1); Calc. Creatinine Clearance 76 mL/min (70-130); Calcium 8.7 mg/dL (7.8-10.44); Carbon Dioxide 22 mmol/L (23-31); Chloride 114 mmol/L (98-107); Estimated GFR-MDRD 79; Glucose 139 mg/dL (83-110); Potassium 3.6 mmol/L (3.5-5.1); Sodium 143 mmol/L (136-145)
[2017-06-04 22:02] LABS: ALV-art Gradient 298.725 (0-20); Calcium, Ionized 1.3 mmol/L (1.12-1.30); Hematocrit-ABG 29.1 % (36.0-47.0); Hemoglobin (Hb) 10.1 g/dL (12.0-16.0); Puncture Site LINE
[2017-06-04] MEDS: Famotidine 40 MG/4 ML VIAL SLOW IVP SCH (22:44)
[2017-06-04] MEDS: Ketorolac Tromethamine 30 MG/ML VIAL IVP SCH (22:45)
[2017-06-04] MEDS: Sodium Chloride 0.9% 1,000 ML IV SCH (22:45)
[2017-06-04] MEDS: Potassium Chloride 20 MEQ/100 ML PREMIX BAG IVPB PRN (23:01)
[2017-06-05] MEDS: Insulin Regular 300 UNITS/3 ML VIAL SC PRN ×2 (00:17→03:46)
[2017-06-05] MEDS: Morphine 4 MG/ML VIAL SLOW IVP PRN ×2 (01:30→02:57)
--- NOTE | 2017-06-05 01:42 | OP ---
DATE OF PROCEDURE: 06/04/2017 PROCEDURES PERFORMED: Left subclavian central line placement, coronary artery bypass grafting x5 wit h left internal mammary artery to the distal LAD, reverse greater saphenous vein graft from the aorta to the distal RCA into the obtuse marginal and sequential reverse greater saphenous vein graft from the OM graft to the first diagonal to the second diagonal. PREOPERATIVE DIAGNOSIS: Coronary artery disease with post-infarction angina. POSTOPERATIVE DIAGNOSIS: Coronary artery disease with post-infarction angina. SURGEON: Paul Sher M.D. LLAMA FARMER: Dr. Cadet. ANESTHESIA: General endotracheal anesthesia. INDICATIONS: The patient is a 77-year-old woman who is a long-term survivor of ovarian cancer, but o bryant has scant past medical history. She had chest pressure for about 30 minutes that resolved a nd then she awoke in the tank cooper hours the following day with chest pain that persisted and did not subside for several hours. She ruled in for myocardial infarction, cardiac catheterization demo nstrated severe 3-vessel coronary disease and it was recommended that she undergo coronary artery byp ass grafting. Those arrangements were made and this morning she awoke again with chest pain that was brought under control with nitroglycerin. She was transferred to the ICU for IV nitroglycerin, main tained stability while arrangements were made for transporting her to the OR in turn. FINDINGS: Pump time 106 minutes. Cross clamp time 64 minutes. Good quality ROXANNE. The saphenous vei n was somewhat thin walled and became somewhat small and very thin-walled at the midcalf. The distal LAD was about 2 mm vessel as were the first and second diagonals. The second diagonal had scattered plaque in it. The obtuse marginal passed through an area of hemorrhage in the epicardium. It was a bout a 1.5-mm vessel. The right coronary was about a 3-mm vessel. The pericardium was loosely tacke d across the heart. NARRATIVE REPORT: After informed consent was obtained, the patient was taken to the operating room a nd placed in supine position on the operating table. After induction of general anesthesia, the julio ent's left upper chest was prepped and draped in sterile fashion. She was placed in Trendelenburg an d a triple-lumen central line kit was used to place a left subclavian central line. All three ports of the catheter easily aspirated and flushed. The line was secured. Ultrasound was then used to map out the veins of the left lower extremity from groin to the distal calf. The patient's torso, groin s, and lower extremities were prepped and draped in sterile fashion. Saphenous vein was endoscopical ly harvested from midcalf to groin and prepared for use as a graft. The harvest sites were closed in layers of subcutaneous and subcuticular Vicryl. A median sternotomy was performed. The left pleura l space was entered and the left ROXANNE was mobilized as a pedicle from the level of the xiphoid to the left subclavian vein. Side branches were controlled with small Hemoclips. The patient was hepariniz ed. The mammary was ligated and divided distally. There was excellent flow through the mammary, whi ch was then instilled intraluminally with papaverine solution. The mammary bed was inspected for hem ostasis. The ROXANNE retractor was placed with an Ankeney. The pericardium was opened and marsupialized . The aorta was palpated and was soft. A double concentric pursestring of #2 Ethibond was placed in the ascending aorta just beyond the pericardial reflection. A single pursestring was placed in the right atrial appendage. Aortic and venous cannulae were inserted and secured by the pursestrings. T he plane between the aorta and the pulmonary artery was developed. Cardiopulmonary bypass was instit uted and the patient's temperature was allowed to systemically cool. The heart was examined. The ve ssels to be bypassed were identified. A longitudinal slit was made in the pericardium anterior to th e left phrenic nerve through which the mammary pedicle could be passed and aortic crossclamp was appl ied and cardioplegia was administered through an aortic root needle. When arrest had been achieved, attention was turned to the distal right coronary system. It was exposed and opened near the crux an d saphenous vein was anastomosed to it in an end-to-side with running Prolene suture and the anastomo sis tested by flushing cold cardioplegia down the graft. Attention was then turned to the circumflex system. The OM was exposed as it emerged from the AV groove and grafted in a similar fashion. The first and second diagonals were explored and points from them for grafting were selected. The first diagonal was opened and a [id number] anastomosis was constructed from the segment of reverse greate r saphenous vein to the first diagonal. The second diagonal was opened and the end-to-side anastomos is was constructed. The LAD was exposed and opened distally and the mammary was anastomosed to it wi th running 7-0 Prolene. The mammary pedicle was tacked to the epicardium. The aortic crossclamp was replaced with partial occluding clamp and aortotomy was made in the ascending aorta with a scalpel a nd punch. The right coronary graft was brought along the right side of the heart and anastomosed to the more proximal aortotomy. The OM graft was anastomosed in the more distal aortotomy. The sequent ial diagonal graft was not quite long enough to reach the aorta. A bulldog was applied to the OM gra ft and the diagonal graft was trimmed to length removing the tightest needle. A corresponding venoto my was made in the OM1 graft and an end-to-side anastomosis was constructed. The partial occluding c lamp and bulldogs were removed. The anastomoses were inspected for hemostasis. A posterior pericard ial drain was brought out through a separate incision and secured with suture as well as a left pleur al drain. Right atrial and right ventricular temporary epicardial pacing wires were placed. The pat ient was then easily from cardiopulmonary bypass. The aortic and venous cannulae were edmar alesia and their pursestring secured. Protamine was administered. When hemostasis was adequate, an ant erior mediastinal drain was placed. The mediastinal fat was tacked back together to cover up the aor ta and the proximal portions of the vein grafts. The inferior medial aspects of the pericardium near the diaphragm were tacked back together. The sternum was reapproximated with #7 stainless steel wir es. Fascia closed over the wires with heavy Vicryl. Subcutaneous tissue was irrigated and reapproxi mated and the skin was closed with Vicryl subcuticular stitch. The needle count was off by 1 and pos toperative chest x-ray failed to show any retained needle. The wounds were dressed and the patient w as taken to the Intensive Care Unit in stable condition.
[2017-06-05 03:22] LABS: Actual Bicarbonate (HCO3a) 20.5 mEq/L (22-26); Base Excess (BEa) -4.2 mEq/L (0 (+/-) 2.5); Calcium, Ionized 1.3 mmol/L (1.12-1.30); Hematocrit-ABG 28.9 % (36.0-47.0); Hemoglobin (Hb) 10.1 g/dL (12.0-16.0); O2 Tension (PaO2) 103.5 mmHg (80.0-100.0); Puncture Site LINE; pH, Arterial 7.37 (7.35-7.45)
[2017-06-05] MEDS: Ketorolac Tromethamine 30 MG/ML VIAL IVP SCH ×3 (04:13→16:41)
[2017-06-05 04:53] LABS: #Neutrophils 12.9 thou/uL (1.40-6.50); %Eosinophils 0.3 % (0.0-10.0); %Lymphocytes 6.7 % (21.0-51.0); %Monocytes 6.5 % (0.0-10.0); %Neutrophils 86.5 % (42.0-75.0); Hemoglobin 10.4 g/dL (12.0-16.0); Mean Corpuscular HGB CONC 33.2 g/dL (32.0-36.0); Mean Corpuscular Hemoglobin 30.5 pg (27.0-31.0); Mean Corpuscular Volume 91.8 fl (81.0-99.0); Mean Platelet Volume 7.4 fL (7.4-10.4); Platelet Count 199 thou/uL (130-400); RBC Distribution Width 12.6 % (11.5-14.5); Red Blood Cell (RBC) Count 3.41 mill/uL (4.20-5.40); White Blood Cell (WBC) Count 14.9 thou/uL (4.8-10.8)
[2017-06-05 05:07] LABS: Anion Gap 10 mmol/L (10-20); BUN (Urea Nitrogen) 20 mg/dL (9.8-20.1); Calc. Creatinine Clearance 76 mL/min (70-130); Calcium 9.3 mg/dL (7.8-10.44); Carbon Dioxide 22 mmol/L (23-31); Chloride 114 mmol/L (98-107); Estimated GFR-MDRD 73; Glucose 138 mg/dL (83-110); Potassium 3.9 mmol/L (3.5-5.1); Sodium 142 mmol/L (136-145)
[2017-06-05] MEDS: Potassium Chloride 20 MEQ/100 ML PREMIX BAG IVPB PRN (05:39)
[2017-06-05] MEDS: Sodium Chloride 0.9% 1,000 ML IV SCH (05:39)
[2017-06-05] MEDS: HYDROcodone/Acetaminophen 5/325 mg Tablet PO PRN ×2 (07:19→20:50)
--- NOTE | 2017-06-05 08:04 | RAD ---
CHEST 1 VIEW: HISTORY: Chest surgery. Followup. COMPARISON: 06/04/17. FINDINGS: Cardiac silhouette remains magnified and enlarged. Pulmonary vasculature is upper limits of normal. Mediastinum is midline. Two left thoracostomy tubes and mediastinal drain remain in place without r esidual pneumothorax. Left subclavian central canal is unchanged in position. Endotracheal catheter is no longer visible. Atelectasis at the left base has improved slightly. Linear opacities previou sly across the upper abdomen are no longer visible. IMPRESSION: 1. Improved aeration of left lung base. Interval extubation. 2. Stable postoperative appearance of the chest. POS: [facility]
--- NOTE | 2017-06-05 09:17 | PRG ---
DATE OF SERVICE: 06/05/2017 SUBJECTIVE: Ms. Garcia did well with her surgery yesterday. She was extub[facility]. OBJECTIVE: VITAL SIGNS: Her heart rates in the 80s, blood pressure 106/53, respiratory rate is 23. LUNGS: Clear. HEART: Regular rhythm. S1 and S2 are normal. ABDOMEN: Soft and nontender. EXTREMITIES: Warm. LABORATORY DATA: White count 14.9, hemoglobin 10.4, platelets 199. Sodium 142, potassium 3.9, chloride 114, bicarbonate 22, BUN 20, creatinine 0.77. IMPRESSION: 1. Status post coronary artery bypass grafting, clinically stable. She is already up in a chair thi s morning, looks great. 2. Mild hyperchloremia. This should correct as her p.o. liquid intake increases. We will continue to follow with the other physicians caring for her.
[2017-06-05] MEDS: Famotidine 20 MG TAB PO SCH ×2 (09:21→20:50)
[2017-06-05] MEDS: Aspirin 325 MG TAB PO SCH (09:21)
--- NOTE | 2017-06-05 09:50 | PDOC.CTH ---
<Beth Mooney - Last Filed: 06/05/17 09:48> Cardiology Progress Note - Subjective The pt seen and examined. No overnight events. No cardiac complaints. She was up to chair this AM without any cardiac complaints. Still has CT x2 and landon. - Objective Vital Signs Temp Pulse Resp BP Pulse Ox 06/05/17 08:00 98.2 F 86 22 H 100 06/05/17 07:00 98.2 F 06/05/17 04:00 100 06/05/17 02:45 80 108/55 L 06/05/17 02:00 14 06/05/17 00:03 83 96/61 06/05/17 00:00 15 06/04/17 22:00 97.9 F 84 13 98 Weight 169 lb 12.095 oz 06/04/17 06/05/17 06/06/17 06:59 06:59 06:59 Intake Total 1200 1264 120 Output Total 1100 1125 110 Balance 100 139 10 - Physical Examination General/Neuro: alert & oriented x3 Neck: no JVD present Lungs: CTA Heart: RRR Abdomen: soft Extremities: other: (No edema) - Telemetry Telemetry Rhythm: SR 80s - Labs Result Diagrams: 06/05/17 04:40 06/05/17 03:45 Troponin/CKMB CK-MB (CK-2) 119.2 ng/mL (0-6.6) H* 06/02/17 13:35 Troponin I 14.925 ng/mL (< 0.028) H* 06/03/17 04:26 - Assessment/Plan 1. NSTEMI with S/p CABG x5 on 06/04/17 with SANDOVAL-distal LAD, RGS-distal RCA and OM, RGS from OM - 1st and 2nd Diag - stable; On ASA and Statin. Will start BBlocker and CORETTA when her VS is more stable 2. HTN - stable; Will start BBlocker and CORETTA when her VS is more stable 3. Dyslipidemia - On statin 4. JOSIAH/CKD 2 - Improved 5. Hx of Ovarian Cancer MAR reviewed Review of Systems - Review of Systems Constitutional: reports: weakness EENTM: reports: no symptoms reported Respiratory: reports: no symptoms reported Cardiac (ROS): reports: no symptoms reported ABD/GI: reports: no symptoms reported : reports: no symptoms reported Musculoskeletal: reports: no symptoms reported <Lorenzo Montanez - Last Filed: 06/05/17 16:45> Cardiology Progress Note - Objective Vital Signs Temp Pulse Resp Pulse Ox 06/05/17 11:00 97.8 F 06/05/17 08:00 98.2 F 86 22 H 100 06/05/17 07:00 98.2 F Weight 169 lb 12.095 oz 06/04/17 06/05/17 06/06/17 06:59 06:59 06:59 Intake Total 1200 1264 735 Output Total 1100 1125 615 Balance 100 139 120 - Labs Result Diagrams: 06/05/17 04:40 06/05/17 03:45 Troponin/CKMB CK-MB (CK-2) 119.2 ng/mL (0-6.6) H* 06/02/17 13:35 Troponin I 14.925 ng/mL (< 0.028) H* 06/03/17 04:26 - Assessment/Plan Pt. seen and eval. by me. I agree with the A/P by the SLASHER OPERATOR. She is doing well s/p CABG. Chest clear anteriorly. RRR.
[2017-06-05] MEDS: Famotidine 40 MG/4 ML VIAL SLOW IVP SCH (10:13)
--- NOTE | 2017-06-05 16:19 | EKG ---
Test Reason : STAT Blood Pressure : / mmHG Vent. Rate : 093 BPM Atrial Rate : 093 BPM P-R Int : 182 ms QRS Dur : 098 ms QT Int : 404 ms P-R-T Axes : 067 007 -12 degrees QTc Int : 502 ms Normal sinus rhythm Incomplete right bundle branch block Inferior-posterior infarct , age undetermined Abnormal ECG Confirmed by JASVIR DELGADO ([id number]) on 06/05/2017 4:19:35 PM Referred By: Confirmed By:JASVIR DELGADO
[2017-06-05] MEDS: Atorvastatin Calcium 20 MG TAB PO SCH (20:50)
--- NOTE | 2017-06-05 23:05 | PDOC.PN ---
- Subjective Encounter Start Date: 06/05/17 Encounter Start Time: 19:30 Patient seen and examined. No new complaints. No overnight events. Some discomfort over the surgical site - Objective Resuscitation Status: Resuscitation Status FULL:Full Resuscitation MAR Reviewed: Yes Vital Signs & Weight: Vital Signs (12 hours) Temp Pulse Resp BP Pulse Ox 06/05/17 17:15 98.2 F 89 16 96 06/05/17 17:13 98.2 F 89 16 107/58 L 96 Weight Weight 169 lb 12.095 oz Most Recent Monitor Data Heart Rate from ECG 86 NIBP 92/46 NIBP BP-Mean 72 Respiration from ECG 16 SpO2 92 I&O: 06/04/17 06/05/17 06/06/17 06:59 06:59 06:59 Intake Total 1200 1264 735 Output Total 1100 1125 975 Balance 100 139 -240 Result Diagrams: 06/06/17 04:34 06/06/17 04:34 Additional Labs: Accuchecks 06/05/17 06/05/17 06/05/17 16:05 10:21 03:47 POC Glucose 128 H 117 H 134 H 06/05/17 00:14 POC Glucose 145 H EKG Reviewed by me: Yes (Tele SR) Phys Exam - Physical Examination Constitutional: NAD Cardiovascular: RRR, no rub Gastrointestinal: soft, non-tender, positive bowel sounds Musculoskeletal: no edema Neurological: moves all 4 limbs Dx/Plan - Plan DVT proph w/SCDs IMPRESSION: 1. NSTEMI/CAD s/p CABG x 5 2. Dyslipidemia 3. HTN 4. JOSIAH/CKD 2 - improved PLAN: * Cont post op care/Cardiac rehab * Cont to monitor * Cont current meds as below * Will resume Betablockers/ACEI once BP stable Review of Systems - Review of Systems Respiratory: negative: Cough, Dry, Shortness of Breath, Hemoptysis, SOB with Excertion, Pleuritic Pain, Sputum, Wheezing Cardiovascular: negative: chest pain, palpitations, orthopnea, paroxysmal nocturnal dyspnea, edema, light headedness, other - Medications/Allergies Allergies/Adverse Reactions: Allergies Allergy/AdvReac Type Severity Reaction Status Date / Time No Known Drug Allergies Allergy Verified 06/02/17 17:08 Medications: Current Medications Acetaminophen (Tylenol) 650 mg PO Q6H PRN PRN Reason: Headache/Fever Or Mild Pain Hydrocodone Bitart/Acetaminophen ([place] 5/325) 1 tab PO Q4H PRN PRN Reason: Moderate Pain (4-6) Hydrocodone Bitart/Acetaminophen ([place] 5/325) 2 tab PO Q4H PRN PRN Reason: Severe Pain (7-10) Last Admin: 06/05/17 20:50 Dose: 2 tab Al Hydroxide/Mg Hydroxide (Maalox) 30 ml PO Q4H PRN PRN Reason: Indigestion Albuterol/Ipratropium (Duoneb) 3 ml NEB [id number] PRN PRN Reason: SHORTNESS OF BREATH Aspirin (Aspirin) 325 mg PO DAILY [facility] Last Admin: 06/05/17 09:21 Dose: 325 mg Atorvastatin Calcium (Lipitor) 20 mg PO HS [facility] Last Admin: 06/05/17 20:50 Dose: 20 mg Bisacodyl (Dulcolax) 10 mg PO Q12H PRN PRN Reason: Constipation Bisacodyl (Dulcolax) 10 mg [place] Q12H PRN PRN Reason: Constipation Famotidine (Pepcid) 20 mg PO Q12HR [facility] Last Admin: 06/05/17 20:50 Dose: 20 mg Guaifenesin/Dextromethorphan (Robitussin Dm) 15 ml PO Q4H PRN PRN Reason: Cough Ondansetron HCl (Zofran) 4 mg IVP Q6H PRN PRN Reason: Nausea/Vomiting Sodium Chloride (Flush - Normal Saline) 10 ml IVF Q12HR [facility] Last Admin: 06/05/17 22:09 Dose: 10 ml Sodium Chloride (Flush - Normal Saline) 10 ml IVF PRN PRN PRN Reason: Saline Flush
[2017-06-06] MEDS: HYDROcodone/Acetaminophen 5/325 mg Tablet PO PRN ×4 (04:19→23:40)
[2017-06-06 05:25] LABS: #Lymphocytes 1.5 thou/uL (1.20-3.40); #Monocytes 0.9 thou/uL (0.11-0.59); %Basophils 0.1 % (0.0-1.0); %Eosinophils 0.2 % (0.0-10.0); %Lymphocytes 17.8 % (21.0-51.0); %Monocytes 10.4 % (0.0-10.0); %Neutrophils 71.6 % (42.0-75.0); Hemoglobin 9.5 g/dL (12.0-16.0); Mean Corpuscular HGB CONC 33.1 g/dL (32.0-36.0); Mean Corpuscular Hemoglobin 30.7 pg (27.0-31.0); Mean Corpuscular Volume 92.7 fl (81.0-99.0); Mean Platelet Volume 7.5 fL (7.4-10.4); Platelet Count 209 thou/uL (130-400); RBC Distribution Width 12.7 % (11.5-14.5); Red Blood Cell (RBC) Count 3.08 mill/uL (4.20-5.40); White Blood Cell (WBC) Count 8.3 thou/uL (4.8-10.8)
[2017-06-06 05:38] LABS: Anion Gap 10 mmol/L (10-20); BUN (Urea Nitrogen) 29 mg/dL (9.8-20.1); Calc. Creatinine Clearance 73 mL/min (70-130); Calcium 9.2 mg/dL (7.8-10.44); Carbon Dioxide 24 mmol/L (23-31); Chloride 106 mmol/L (98-107); Estimated GFR-MDRD 70; Glucose 114 mg/dL (83-110); Potassium 3.7 mmol/L (3.5-5.1); Sodium 136 mmol/L (136-145)
[2017-06-06] MEDS: Aspirin 325 MG TAB PO SCH (07:42)
[2017-06-06] MEDS: Bisacodyl 5 MG TAB PO PRN (07:42)
[2017-06-06] MEDS: Famotidine 20 MG TAB PO SCH ×2 (07:42→20:49)
--- NOTE | 2017-06-06 07:48 | RAD ---
UPRIGHT PORTABLE CHEST 1 VIEW: HISTORY: A 77-year-old female with a history of postop open heart. FINDINGS: Recent postop midline sternotomy changes with left subclavian catheter and left-sided chest tubes. T here is evidence of enlargement of the cardiac silhouette with some bilateral vascular congestion and small bilateral pleural effusions and bibasilar parenchymal changes, evidence for postoperative chapman ge. Small left apical pneumothorax. IMPRESSION: Small left apical pneumothorax. Otherwise, stable postoperative changes with some vascular congestio n and bibasilar postoperative pleural and parenchymal opacity changes. Continued short-term followup . POS: [facility]
--- NOTE | 2017-06-06 09:34 | PRG ---
DATE OF SERVICE: 06/06/2017 SUBJECTIVE: Ms. Garcia is afebrile. PHYSICAL EXAMINATION: VITAL SIGNS: Heart rate is 86, respiratory rate 16, oximetry is 95% on room air, blood pressure 109/ 53. LUNGS: Clear with exception of crackles at her left base. HEART: Regular rhythm. S1 and S2 are normal. ABDOMEN: Soft. IMAGING DATA: Chest radiograph shows small apical left pneumothorax. She still has chest tubes in place. IMPRESSION: 1. Status post coronary artery bypass grafting, clinically stable. 2. Very small asymptomatic apical pneumothorax. 3. Blood loss anemia, stable, hemoglobin today is 9.5 and yesterday 10.4. 4. Hyperchloremia resolved, her chloride today is 106. PLAN: Continue supportive care and cardiac rehabilitation.
[2017-06-06] MEDS ORDERED: Polyethylene Glycol 3350 17 GM Packet PO SCH (09:45)
--- NOTE | 2017-06-06 13:47 | PDOC.CTH ---
<Beth Mooney - Last Filed: 06/06/17 13:45> Cardiology Progress Note - Subjective The pt seen and examined. No overnight events. No cardiac complaints. She has not exercised with PTs yet since s/p CABG. Strongly encourage to use IS x10 q1h. - Objective Vital Signs Temp Pulse Resp BP Pulse Ox 06/06/17 07:38 97.9 F 86 16 109/53 L 95 06/06/17 04:02 97.8 F 86 16 107/58 L 94 L Weight 169 lb 12.8 oz 06/05/17 06/06/17 06/07/17 06:59 06:59 06:59 Intake Total 1264 1095 Output Total 1125 1410 10 Balance 139 -315 -10 - Physical Examination General/Neuro: alert & oriented x3 Neck: no JVD present Lungs: CTA (diminished at bases; ) Heart: RRR Abdomen: soft Extremities: other: (No edema; Rt MAX and CORETTA wrap on Lt) - Telemetry Telemetry Rhythm: SR - Labs Result Diagrams: 06/06/17 04:34 06/06/17 04:34 Troponin/CKMB CK-MB (CK-2) 119.2 ng/mL (0-6.6) H* 06/02/17 13:35 Troponin I 14.925 ng/mL (< 0.028) H* 06/03/17 04:26 - Assessment/Plan 1. NSTEMI with S/p CABG x5 on 06/04/17 with SANDOVAL-distal LAD, RGS-distal RCA and OM, RGS from OM - 1st and 2nd Diag - stable; On ASA and Statin. Will start BBlocker and CORETTA when her VS is more stable 2. HTN - stable; Will start BBlocker and CORETTA when her VS is more stable 3. Dyslipidemia - On statin 4. JOSIAH/CKD 2 - Improved 5. Hx of Ovarian Cancer 6. Low Hgb level - 9.5 today; the pt denied any symptoms at this time. MAR reviewed Review of Systems - Review of Systems Constitutional: reports: no symptoms reported EENTM: reports: no symptoms reported Respiratory: reports: no symptoms reported Cardiac (ROS): reports: no symptoms reported ABD/GI: reports: no symptoms reported : reports: no symptoms reported Musculoskeletal: reports: no symptoms reported <Lorenzo Montanez - Last Filed: 06/06/17 14:58> Cardiology Progress Note - Objective Vital Signs Temp Pulse Resp BP Pulse Ox 06/06/17 07:38 97.9 F 86 16 109/53 L 95 06/06/17 04:02 97.8 F 86 16 107/58 L 94 L Weight 169 lb 12.8 oz 06/05/17 06/06/17 06/07/17 06:59 06:59 06:59 Intake Total 1264 1095 Output Total 1125 1410 510 Balance 139 315 -510 - Labs Result Diagrams: 06/06/17 04:34 06/06/17 04:34 Troponin/CKMB CK-MB (CK-2) 119.2 ng/mL (0-6.6) H* 06/02/17 13:35 Troponin I 14.925 ng/mL (< 0.028) H* 06/03/17 04:26 - Assessment/Plan Pt. seen and eval. by me. I agree with the A/P by the CHEMICAL PROCESS ANALYST. Continue present treatments. Chest clear. RRR.
--- NOTE | 2017-06-06 17:51 | PDOC.PN ---
- Subjective Encounter Start Date: 06/06/17 Encounter Start Time: 14:00 Patient seen and examined. No new complaints. No overnight events. Chest tube dced. - Objective Resuscitation Status: Resuscitation Status FULL:Full Resuscitation MAR Reviewed: Yes Vital Signs & Weight: Vital Signs (12 hours) Temp Pulse Resp BP Pulse Ox 06/06/17 17:09 98.6 F 91 16 123/58 L 94 L 06/06/17 07:38 97.9 F 86 16 109/53 L 95 Weight Weight 169 lb 12.8 oz Most Recent Monitor Data Heart Rate from ECG 86 NIBP 92/46 NIBP BP-Mean 72 Respiration from ECG 16 SpO2 92 I&O: 06/05/17 06/06/17 06/07/17 06:59 06:59 06:59 Intake Total 1264 1095 Output Total 1125 1410 580 Balance 139 -315 -580 Result Diagrams: 06/06/17 04:34 06/06/17 04:34 Additional Labs: Accuchecks 06/06/17 06/06/17 06/06/17 16:58 15:33 11:23 POC Glucose 152 H 106 130 H 06/06/17 05:46 POC Glucose 115 H EKG Reviewed by me: Yes (Tele SR) Phys Exam - Physical Examination Constitutional: NAD Respiratory: no wheezing, no rhonchi Cardiovascular: RRR, no rub Gastrointestinal: soft, non-tender, positive bowel sounds Musculoskeletal: no edema Neurological: moves all 4 limbs Dx/Plan - Plan DVT proph w/SCDs IMPRESSION: 1. NSTEMI/CAD s/p CABG x 5 2. Dyslipidemia 3. HTN - [employer]/ACEI on hold 4. JOSIAH/CKD 2 - improved PLAN: * Ambulate * Cont post op care * Cardiac rehab * Cont to monitor * Cont current meds as below * CXR and labs in AM * Add Sen-S * Cont Miralax Review of Systems - Review of Systems Respiratory: negative: Cough, Dry, Shortness of Breath, Hemoptysis, SOB with Excertion, Pleuritic Pain, Sputum, Wheezing Cardiovascular: negative: chest pain, palpitations, orthopnea, paroxysmal nocturnal dyspnea, edema, light headedness, other Gastrointestinal: Constipation. negative: Nausea, Vomiting, Abdominal Pain, Diarrhea, Melena, Hematochezia, Other - Medications/Allergies Allergies/Adverse Reactions: Allergies Allergy/AdvReac Type Severity Reaction Status Date / Time No Known Drug Allergies Allergy Verified 06/02/17 17:08 Medications: Current Medications Acetaminophen (Tylenol) 650 mg PO Q6H PRN PRN Reason: Headache/Fever Or Mild Pain Hydrocodone Bitart/Acetaminophen ([place] 5/325) 1 tab PO Q4H PRN PRN Reason: Moderate Pain (4-6) Last Admin: 06/06/17 09:56 Dose: 1 tab Hydrocodone Bitart/Acetaminophen ([place] 5/325) 2 tab PO Q4H PRN PRN Reason: Severe Pain (7-10) Last Admin: 06/06/17 13:47 Dose: 2 tab Al Hydroxide/Mg Hydroxide (Maalox) 30 ml PO Q4H PRN PRN Reason: Indigestion Albuterol/Ipratropium (Duoneb) 3 ml NEB [id number] PRN PRN Reason: SHORTNESS OF BREATH Aspirin (Aspirin) 325 mg PO DAILY [facility] Last Admin: 06/06/17 07:42 Dose: 325 mg Atorvastatin Calcium (Lipitor) 20 mg PO HS [facility] Last Admin: 06/05/17 20:50 Dose: 20 mg Bisacodyl (Dulcolax) 10 mg PO Q12H PRN PRN Reason: Constipation Last Admin: 06/06/17 07:42 Dose: 10 mg Bisacodyl (Dulcolax) 10 mg [place] Q12H PRN PRN Reason: Constipation Famotidine (Pepcid) 20 mg PO Q12HR [facility] Last Admin: 06/06/17 07:42 Dose: 20 mg Guaifenesin/Dextromethorphan (Robitussin Dm) 15 ml PO Q4H PRN PRN Reason: Cough Ondansetron HCl (Zofran) 4 mg IVP Q6H PRN PRN Reason: Nausea/Vomiting Polyethylene Glycol (Miralax) 17 gm PO DAILY [facility] Senna/Docusate Sodium (Senokot S) 1 tab PO BID [facility] Sodium Chloride (Flush - Normal Saline) 10 ml IVF Q12HR [facility] Last Admin: 06/06/17 07:42 Dose: 10 ml Sodium Chloride (Flush - Normal Saline) 10 ml IVF PRN PRN PRN Reason: Saline Flush
[2017-06-06] MEDS: Senokot S 8.6-50 MG TAB PO SCH (20:49)
[2017-06-06] MEDS: Atorvastatin Calcium 20 MG TAB PO SCH (20:49)
[2017-06-07] MEDS: HYDROcodone/Acetaminophen 5/325 mg Tablet PO PRN ×2 (04:50→15:03)
[2017-06-07 05:10] LABS: #Eosinphils 0.1 thou/uL (0.0-0.7); #Lymphocytes 1.5 thou/uL (1.20-3.40); #Monocytes 0.8 thou/uL (0.11-0.59); #Neutrophils 6.4 thou/uL (1.40-6.50); %Basophils 0.2 % (0.0-1.0); %Eosinophils 0.6 % (0.0-10.0); %Lymphocytes 17.5 % (21.0-51.0); %Neutrophils 72.7 % (42.0-75.0); Mean Corpuscular HGB CONC 34.2 g/dL (32.0-36.0); Mean Corpuscular Hemoglobin 31.5 pg (27.0-31.0); Platelet Count 252 thou/uL (130-400); RBC Distribution Width 12.8 % (11.5-14.5); Red Blood Cell (RBC) Count 3.18 mill/uL (4.20-5.40); White Blood Cell (WBC) Count 8.8 thou/uL (4.8-10.8)
[2017-06-07 05:39] LABS: Anion Gap 11 mmol/L (10-20); BUN (Urea Nitrogen) 21 mg/dL (9.8-20.1); Calc. Creatinine Clearance 78 mL/min (70-130); Calcium 9.3 mg/dL (7.8-10.44); Carbon Dioxide 25 mmol/L (23-31); Chloride 105 mmol/L (98-107); Estimated GFR-MDRD 75; Glucose 110 mg/dL (83-110); Potassium 3.9 mmol/L (3.5-5.1); Sodium 137 mmol/L (136-145)
[2017-06-07] MEDS: Aspirin 325 MG TAB PO SCH (09:03)
[2017-06-07] MEDS: Senokot S 8.6-50 MG TAB PO SCH ×2 (09:03→20:02)
[2017-06-07] MEDS: Polyethylene Glycol 3350 17 GM Packet PO SCH (09:03)
[2017-06-07] MEDS: Famotidine 20 MG TAB PO SCH ×2 (09:03→20:02)
[2017-06-07] MEDS: Bisacodyl 5 MG TAB PO PRN (09:08)
--- NOTE | 2017-06-07 11:21 | PDOC.PN ---
- Subjective Encounter Start Date: 06/07/17 Encounter Start Time: 08:10 -: old records requested/rev Patient seen and examined. No new complaints. No overnight events pt still has hypoxia - Objective Resuscitation Status: Resuscitation Status FULL:Full Resuscitation MAR Reviewed: Yes Vital Signs & Weight: Vital Signs (12 hours) Temp Pulse Resp BP Pulse Ox 06/07/17 07:41 98.6 F 87 18 91 L 06/07/17 07:39 98.6 F 87 18 134/64 91 L 06/07/17 04:00 98.7 F 90 19 130/60 95 06/07/17 00:00 98.2 F 99 19 116/57 L 93 L Weight Weight 176 lb 8 oz Most Recent Monitor Data Heart Rate from ECG 86 NIBP 92/46 NIBP BP-Mean 72 Respiration from ECG 16 SpO2 92 I&O: 06/06/17 06/07/17 06/08/17 06:59 06:59 06:59 Intake Total 1095 600 Output Total 1410 1480 500 Balance -315 -880 -500 Result Diagrams: 06/07/17 04:37 06/07/17 04:37 Additional Labs: Accuchecks 06/07/17 06/06/17 06/06/17 05:42 20:20 16:58 POC Glucose 118 H 135 H 152 H 06/06/17 06/06/17 06/06/17 15:33 11:23 05:46 POC Glucose 106 130 H 115 H EKG Reviewed by me: Yes Phys Exam - Physical Examination Constitutional: NAD HEENT: PERRLA, moist MMs, sclera anicteric Neck: no JVD, supple Respiratory: no wheezing, no rales, no rhonchi Cardiovascular: RRR, no significant murmur, no rub Gastrointestinal: soft, non-tender, no distention, positive bowel sounds Musculoskeletal: no edema, pulses present Neurological: non-focal, normal sensation, moves all 4 limbs Lymphatic: no nodes Psychiatric: normal affect, A&O x 3 Skin: no rash, normal turgor Dx/Plan (1) Acute renal failure superimposed on stage 2 chronic kidney disease Code(s): N17.9 - ACUTE KIDNEY FAILURE, UNSPECIFIED; N18.2 - CHRONIC KIDNEY DISEASE, STAGE 2 (MILD) Status: Acute (2) Anemia, blood loss Code(s): D50.0 - IRON DEFICIENCY ANEMIA SECONDARY TO BLOOD LOSS (CHRONIC) Status: Acute (3) NSTEMI (non-ST elevated myocardial infarction) Code(s): I21.4 - NON-ST ELEVATION (NSTEMI) MYOCARDIAL INFARCTION Status: Acute (4) S/P CABG x 5 Code(s): Z95.1 - PRESENCE OF AORTOCORONARY BYPASS GRAFT Status: Acute (5) Dyslipidemia Code(s): E78.5 - HYPERLIPIDEMIA, UNSPECIFIED Status: Chronic (6) H/O ovarian cancer Status: Chronic (7) Hypertension Code(s): I10 - ESSENTIAL (PRIMARY) HYPERTENSION Status: Chronic - Plan cont current plan of care * medication reviewed as below * symptomatic treatment * will monitor oxygen level on room air * continue current medical therapy * stable medically * expecting discharge in 24-48 hours. Review of Systems - Review of Systems Eyes: negative: Pain, Vision Change, Conjunctivae Inflammation, Eyelid Inflammation, Redness, Other ENT: negative: Ear Pain, Ear Discharge, Nose Pain, Nose Discharge, Nose Congestion, Mouth Pain, Mouth Swelling, Throat Pain, Throat Swelling, Other Respiratory: negative: Cough, Dry, Shortness of Breath, Hemoptysis, SOB with Excertion, Pleuritic Pain, Sputum, Wheezing Cardiovascular: negative: chest pain, palpitations, orthopnea, paroxysmal nocturnal dyspnea, edema, light headedness, other Gastrointestinal: negative: Nausea, Vomiting, Abdominal Pain, Diarrhea, Constipation, Melena, Hematochezia, Other Genitourinary: negative: Dysuria, Frequency, Incontinence, Hematuria, Retention , Other Musculoskeletal: negative: Neck Pain, Shoulder Pain, Arm Pain, Back Pain, Hand Pain, Leg Pain, Foot Pain, Other Skin: negative: Rash, Lesions, Luther, Bruising, Other - Medications/Allergies Allergies/Adverse Reactions: Allergies Allergy/AdvReac Type Severity Reaction Status Date / Time No Known Drug Allergies Allergy Verified 06/02/17 17:08 Medications: Current Medications Acetaminophen (Tylenol) 650 mg PO Q6H PRN PRN Reason: Headache/Fever Or Mild Pain Hydrocodone Bitart/Acetaminophen ([place] 5/325) 1 tab PO Q4H PRN PRN Reason: Moderate Pain (4-6) Last Admin: 06/06/17 09:56 Dose: 1 tab Hydrocodone Bitart/Acetaminophen ([place] 5/325) 2 tab PO Q4H PRN PRN Reason: Severe Pain (7-10) Last Admin: 06/07/17 04:50 Dose: 2 tab Al Hydroxide/Mg Hydroxide (Maalox) 30 ml PO Q4H PRN PRN Reason: Indigestion Albuterol/Ipratropium (Duoneb) 3 ml NEB [id number] PRN PRN Reason: SHORTNESS OF BREATH Aspirin (Aspirin) 325 mg PO DAILY [facility] Last Admin: 06/07/17 09:03 Dose: 325 mg Atorvastatin Calcium (Lipitor) 20 mg PO HS [facility] Last Admin: 06/06/17 20:49 Dose: 20 mg Bisacodyl (Dulcolax) 10 mg PO Q12H PRN PRN Reason: Constipation Last Admin: 06/07/17 09:08 Dose: 10 mg Bisacodyl (Dulcolax) 10 mg [place] Q12H PRN PRN Reason: Constipation Famotidine (Pepcid) 20 mg PO Q12HR [facility] Last Admin: 06/07/17 09:03 Dose: 20 mg Guaifenesin/Dextromethorphan (Robitussin Dm) 15 ml PO Q4H PRN PRN Reason: Cough Ondansetron HCl (Zofran) 4 mg IVP Q6H PRN PRN Reason: Nausea/Vomiting Polyethylene Glycol (Miralax) 17 gm PO DAILY [facility] Last Admin: 06/07/17 09:03 Dose: 17 gm Senna/Docusate Sodium (Senokot S) 1 tab PO BID [facility] Last Admin: 06/07/17 09:03 Dose: 1 tab Sodium Chloride (Flush - Normal Saline) 10 ml IVF Q12HR [facility] Last Admin: 06/07/17 09:03 Dose: 10 ml Sodium Chloride (Flush - Normal Saline) 10 ml IVF PRN PRN PRN Reason: Saline Flush
[2017-06-07] MEDS ORDERED: Furosemide 40 MG TAB PO SCH (12:15)
--- NOTE | 2017-06-07 13:51 | PRG ---
DATE OF SERVICE: 06/07/2017 SERVICE: Pulmonary Medicine. INTERVAL HISTORY: The patient is doing great from a respiratory standpoint. Today, she feels like s he really turned the corner. She stood up and walked up and down the hallways. She did not have any difficulties with ambulation. She feels that her strength is coming back to her. She has no chest discomfort or shortness of breath. She has not required a [place] since the middle of the night. PHYSICAL EXAMINATION: VITAL SIGNS: Afebrile, pulse 91, blood pressure 140/71, respirations 18, saturation 96% on 2 liters nasal cannula. On room air, I checked during she was 88% on room air. HEENT: Normocephalic, atraumatic. Sclerae are white, conjunctivae pink. Oral mucosa is moist witho ut lesions. LUNGS: Decent air entry. Little bit crackling is present bilaterally, but there is no wheezing or r honchi present. HEART: Normal rate, regular. ABDOMEN: Soft, nontender, nondistended. Bowel sounds are positive. MUSCULOSKELETAL: No cyanosis or clubbing. No pitting in the bilateral lower extremities. NEUROLOGIC: Grossly nonfocal. LABORATORY DATA: WBC 8.8, hemoglobin 10.0, platelets 252,000. Basic metabolic profile is otherwise unremarkable. Creatinine 0.75. ASSESSMENT: 1. Acute hypoxic respiratory failure. 2. Coronary artery disease, status post coronary artery bypass graft, postoperative day #3. 3. Acute blood loss anemia. PLAN: We will introduce a small dose of Lasix on a daily basis to see if they can clean up some of h er hypoxemic failure. Otherwise, we will encourage mobility as much as tolerated. She has had a bow el movement since being here. We will make certain that she has medications available to her to prom ote a healthy bowel movement over the next 24 hours.
[2017-06-07] MEDS: Atorvastatin Calcium 20 MG TAB PO SCH (20:02)
--- NOTE | 2017-06-08 05:55 | PDOC.PN ---
- Subjective Encounter Start Date: 06/08/17 Encounter Start Time: 08:00 Patient seen and examined. No new complaints. No overnight events - Objective Resuscitation Status: Resuscitation Status FULL:Full Resuscitation MAR Reviewed: Yes Vital Signs & Weight: Vital Signs (12 hours) Temp Pulse Resp Pulse Ox 06/08/17 01:11 92 L 06/07/17 20:14 98 F 100 18 92 L Weight Weight 176 lb 8 oz Most Recent Monitor Data Heart Rate from ECG 86 NIBP 92/46 NIBP BP-Mean 72 Respiration from ECG 16 SpO2 92 I&O: 06/06/17 06/07/17 06/08/17 06:59 06:59 06:59 Intake Total 1095 600 Output Total 1410 1480 500 Balance -315 -670 -500 Result Diagrams: 06/07/17 04:37 06/08/17 04:45 Additional Labs: Accuchecks 06/07/17 06/07/17 06/07/17 21:02 16:35 11:01 POC Glucose 124 H 155 H 118 H 06/07/17 05:42 POC Glucose 118 H EKG Reviewed by me: Yes (nsr) Phys Exam - Physical Examination Constitutional: NAD HEENT: PERRLA, moist MMs, sclera anicteric Neck: no JVD, supple Respiratory: no wheezing, no rales, no rhonchi Cardiovascular: RRR, no significant murmur, no rub Gastrointestinal: soft, non-tender, no distention, positive bowel sounds Musculoskeletal: no edema, pulses present Neurological: non-focal, normal sensation, moves all 4 limbs Psychiatric: normal affect, A&O x 3 Skin: no rash, normal turgor Dx/Plan (1) Acute renal failure superimposed on stage 2 chronic kidney disease Code(s): N17.9 - ACUTE KIDNEY FAILURE, UNSPECIFIED; N18.2 - CHRONIC KIDNEY DISEASE, STAGE 2 (MILD) Status: Acute (2) Anemia, blood loss Code(s): D50.0 - IRON DEFICIENCY ANEMIA SECONDARY TO BLOOD LOSS (CHRONIC) Status: Acute (3) NSTEMI (non-ST elevated myocardial infarction) Code(s): I21.4 - NON-ST ELEVATION (NSTEMI) MYOCARDIAL INFARCTION Status: Acute (4) S/P CABG x 5 Code(s): Z95.1 - PRESENCE OF AORTOCORONARY BYPASS GRAFT Status: Acute (5) Dyslipidemia Code(s): E78.5 - HYPERLIPIDEMIA, UNSPECIFIED Status: Chronic (6) H/O ovarian cancer Status: Chronic (7) Hypertension Code(s): I10 - ESSENTIAL (PRIMARY) HYPERTENSION Status: Chronic - Plan cont current plan of care * stable medically * medication reviewed as below * symptomatic treatment * discharge as per surgeon and cardiology * wean off oxygen today and check room air spo2. Review of Systems - Review of Systems Eyes: negative: Pain, Vision Change, Conjunctivae Inflammation, Eyelid Inflammation, Redness, Other ENT: negative: Ear Pain, Ear Discharge, Nose Pain, Nose Discharge, Nose Congestion, Mouth Pain, Mouth Swelling, Throat Pain, Throat Swelling, Other Respiratory: negative: Cough, Dry, Shortness of Breath, Hemoptysis, SOB with Excertion, Pleuritic Pain, Sputum, Wheezing Cardiovascular: negative: chest pain, palpitations, orthopnea, paroxysmal nocturnal dyspnea, edema, light headedness, other Gastrointestinal: negative: Nausea, Vomiting, Abdominal Pain, Diarrhea, Constipation, Melena, Hematochezia, Other Genitourinary: negative: Dysuria, Frequency, Incontinence, Hematuria, Retention , Other Musculoskeletal: negative: Neck Pain, Shoulder Pain, Arm Pain, Back Pain, Hand Pain, Leg Pain, Foot Pain, Other Skin: negative: Rash, Lesions, Luther, Bruising, Other - Medications/Allergies Allergies/Adverse Reactions: Allergies Allergy/AdvReac Type Severity Reaction Status Date / Time No Known Drug Allergies Allergy Verified 06/02/17 17:08 Medications: Current Medications Acetaminophen (Tylenol) 650 mg PO Q6H PRN PRN Reason: Headache/Fever Or Mild Pain Hydrocodone Bitart/Acetaminophen ([place] 5/325) 1 tab PO Q4H PRN PRN Reason: Moderate Pain (4-6) Last Admin: 06/06/17 09:56 Dose: 1 tab Hydrocodone Bitart/Acetaminophen ([place] 5/325) 2 tab PO Q4H PRN PRN Reason: Severe Pain (7-10) Last Admin: 06/07/17 15:03 Dose: 2 tab Al Hydroxide/Mg Hydroxide (Maalox) 30 ml PO Q4H PRN PRN Reason: Indigestion Albuterol/Ipratropium (Duoneb) 3 ml NEB [id number] PRN PRN Reason: SHORTNESS OF BREATH Aspirin (Aspirin) 325 mg PO DAILY [facility] Last Admin: 06/07/17 09:03 Dose: 325 mg Atorvastatin Calcium (Lipitor) 20 mg PO HS [facility] Last Admin: 06/07/17 20:02 Dose: 20 mg Bisacodyl (Dulcolax) 10 mg PO Q12H PRN PRN Reason: Constipation Last Admin: 06/07/17 09:08 Dose: 10 mg Bisacodyl (Dulcolax) 10 mg [place] Q12H PRN PRN Reason: Constipation Famotidine (Pepcid) 20 mg PO Q12HR [facility] Last Admin: 06/07/17 20:02 Dose: 20 mg Furosemide (Lasix) 40 mg PO DAILY[facility] Stop: 06/09/17 07:31 Ondansetron HCl (Zofran) 4 mg IVP Q6H PRN PRN Reason: Nausea/Vomiting Polyethylene Glycol (Miralax) 17 gm PO DAILY [facility] Last Admin: 06/07/17 09:03 Dose: 17 gm Senna/Docusate Sodium (Senokot S) 1 tab PO BID [facility] Last Admin: 06/07/17 20:02 Dose: 1 tab Sodium Chloride (Flush - Normal Saline) 10 ml IVF Q12HR [facility] Last Admin: 06/07/17 20:46 Dose: 10 ml Sodium Chloride (Flush - Normal Saline) 10 ml IVF PRN PRN PRN Reason: Saline Flush
[2017-06-08 06:10] LABS: Anion Gap 13 mmol/L (10-20); BUN (Urea Nitrogen) 15 mg/dL (9.8-20.1); Calc. Creatinine Clearance 90 mL/min (70-130); Calcium 9.2 mg/dL (7.8-10.44); Carbon Dioxide 25 mmol/L (23-31); Chloride 103 mmol/L (98-107); Estimated GFR-MDRD 86; Glucose 109 mg/dL (83-110); Magnesium 1.8 mg/dL (1.6-2.6); Potassium 3.3 mmol/L (3.5-5.1); Sodium 138 mmol/L (136-145)
[2017-06-08] MEDS: HYDROcodone/Acetaminophen 5/325 mg Tablet PO PRN ×2 (07:20→17:56)
[2017-06-08] MEDS: Famotidine 20 MG TAB PO SCH ×2 (09:01→21:19)
[2017-06-08] MEDS: Furosemide 40 MG TAB PO SCH (09:01)
[2017-06-08] MEDS: Metoprolol Tartrate 25 MG TAB PO SCH ×2 (09:01→21:20)
[2017-06-08] MEDS: Polyethylene Glycol 3350 17 GM Packet PO SCH (09:01)
[2017-06-08] MEDS: Aspirin 325 MG TAB PO SCH (09:01)
[2017-06-08] MEDS: Senokot S 8.6-50 MG TAB PO SCH ×2 (10:33→21:20)
[2017-06-08] MEDS ORDERED: Metolazone 5 MG TAB PO SCH (10:45)
[2017-06-08] MEDS ORDERED: Potassium Chloride 20 MEQ TAB PO SCH (19:30)
[2017-06-08] MEDS ORDERED: Magnesium 2 GM/NS 0.9% 100 ML 2 GM in Premix Bag 1 BAG IVPB SCH (19:30)
--- NOTE | 2017-06-08 19:46 | PRG ---
DATE OF SERVICE: 06/08/2017 SERVICE: Pulmonary Medicine. INTERVAL HISTORY: The patient is doing absolutely fantastic. She was up walking around 3 times a da y. She feels that she overdid it a little bit and had some discomfort for which she requested [place]. Otherwise, there has been no interval change to her condition. PHYSICAL EXAMINATION: VITAL SIGNS: Afebrile, pulse 89, blood pressure 145/68, respirations 16, saturation 95% on room air. GENERAL: The patient is awake and alert, in no apparent distress. LUNGS: Excellent air entry. Minimal crackles are present dependently. HEART: Normal rate, regular. ABDOMEN: Soft, nontender, and nondistended. Bowel sounds are positive. MUSCULOSKELETAL: No cyanosis or clubbing. There is no pitting in the bilateral lower extremities. NEUROLOGIC: Grossly nonfocal. LABORATORY DATA: WBC 8.8, hemoglobin 10.0, platelets 252,000. INR is 1.5. Basic metabolic profile is completely unremarkable except for magnesium of 1.8, potassium of 3.3. ASSESSMENT: 1. Acute hypoxic respiratory failure. 2. Coronary artery disease, status post coronary artery bypass graft, postoperative day #4. 3. Acute blood loss anemia, stable. PLAN: We will continue small dose of Lasix. That being said, she is approaching euvolemia. I zara ly do not believe the bed weight. We will get a standing weight tomorrow morning to see whether or n ot she is truly 16 pounds up. I will replace the potassium and magnesium today. She will continue m obilizing as much as tolerated, but from my perspective, she will likely be stable for transition out of the hospital in [address] oSn will resume care in the morning.
[2017-06-08] MEDS: Atorvastatin Calcium 20 MG TAB PO SCH (21:19)
[2017-06-09] MEDS: HYDROcodone/Acetaminophen 5/325 mg Tablet PO PRN ×2 (03:22→10:21)
[2017-06-09 06:04] LABS: Anion Gap 12 mmol/L (10-20); BUN (Urea Nitrogen) 13 mg/dL (9.8-20.1); Calc. Creatinine Clearance 75 mL/min (70-130); Carbon Dioxide 29 mmol/L (23-31); Chloride 100 mmol/L (98-107); Estimated GFR-MDRD 76; Glucose 107 mg/dL (83-110); Potassium 3.8 mmol/L (3.5-5.1); Sodium 137 mmol/L (136-145)
--- NOTE | 2017-06-09 07:04 | DIS ---
DATE OF ADMISSION: 06/02/2017 DATE OF DISCHARGE: 06/09/2017 PRINCIPAL DIAGNOSES: Coronary artery disease with non-ST elevation myocardial infarction and postinf arction angina. PROCEDURES PERFORMED: Cardiac catheterization, 06/02/2017, coronary artery bypass grafting x5, left internal mammary artery to the LAD, reverse greater saphenous vein graft from the aorta to the distal RCA and from the aorta to the obtuse marginal, sequential reverse greater saphenous vein graft from the OM graft to the first diagonal to the second diagonal, 06/04/2017. HISTORY OF PRESENT ILLNESS AND HOSPITAL COURSE: The patient is a 77-year-old woman who is a long-ter m survivor of ovarian cancer, but otherwise has minimal past medical history. 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 Early on Friday afternoon, she began having c hest pain and she decided to drive herself to the hospital, but on the way, the pain resolved, so she went home instead. Early Friday morning, she awoke with more chest pain that persisted for several hours while it had diminished, it did not completely resolved. When she told her daughter about it, that morning her daughter insisted that she go to the hospital and upon her initial laboratory studie s, she had a positive troponin and she was transferred here and underwent cardiac catheterization whe re she was found to have severe multivessel coronary artery disease with one focal area of hypokinesi s or akinesis, but overall preserved left ventricular function. Arrangements were made for coronary artery bypass grafting on the following day. On morning around the following day, she was having susi e chest pain that was resolving with nitroglycerin, she was transferred to the Intensive Care Unit fo r IV nitroglycerin. While awaiting the OR, she underwent a 5-vessel coronary bypass procedure that a fternoon and did very well. She was extubated early on the morning of postoperative day #1 and trans ferred to the [facility] that afternoon. Her chest tube drainage diminished adequately to remove her tubes on postoperative day #2 and she still had edema manifest as several pounds above her preop weight, s he was diuresed and as she came back down towards her preoperative weight, she is discharged home. S he is to take an aspirin a day and prescriptions have been written for Lipitor 20 mg at bedtime, Lopr essor 25 mg b.i.d., and a weeks worth of Lasix 40 mg a day, and Vicodin as needed for pain. I will p ele on seeing her in the office around 10 days to [address] up with Dr[address] Montanez will be per her.
[2017-06-09 07:52] VITALS: TEMP 98.1
[2017-06-09] MEDS: Furosemide 40 MG TAB PO SCH (07:53)
[2017-06-09] MEDS: Metoprolol Tartrate 25 MG TAB PO SCH (07:53)
[2017-06-09] MEDS: Famotidine 20 MG TAB PO SCH (07:53)
[2017-06-09] MEDS: Aspirin 325 MG TAB PO SCH (07:53)
[2017-06-09] MEDS: Polyethylene Glycol 3350 17 GM Packet PO SCH (07:54)
[2017-06-09] MEDS: Senokot S 8.6-50 MG TAB PO SCH (07:54)
[2017-06-09] MEDS ORDERED: Potassium Chloride 20 MEQ TAB PO SCH (08:00)
--- NOTE | 2017-06-09 08:42 | PDOC.CTH ---
Cardiology Progress Note - Subjective The pt seen and examined. No overnight events. No cardiac complaints. She has been walking with PTs and daughter without any difficulties. - Objective Vital Signs Temp Pulse Resp BP Pulse Ox 06/09/17 08:02 98.1 F 96 16 94 L 06/09/17 07:51 98.1 F 96 16 127/75 94 L 06/09/17 04:00 98.2 F 88 20 122/69 92 L 06/08/17 21:20 98.3 F 93 18 92 L 06/08/17 21:09 98.3 F 93 18 140/73 92 L Weight 161 lb 06/08/17 06/09/17 06/10/17 06:59 06:59 06:59 Intake Total 400 850 Output Total 1800 4050 Balance -1400 -3200 - Physical Examination General/Neuro: alert & oriented x3 Neck: no JVD present Lungs: CTA Heart: RRR Abdomen: soft Extremities: other: (No edema; RENATA @ [facility]) - Telemetry Telemetry Rhythm: SR 80s - Labs Result Diagrams: 06/07/17 04:37 06/09/17 04:51 Troponin/CKMB CK-MB (CK-2) 119.2 ng/mL (0-6.6) H* 06/02/17 13:35 Troponin I 14.925 ng/mL (< 0.028) H* 06/03/17 04:26 - Assessment/Plan 1. NSTEMI with S/p CABG x5 on 06/04/17 with SANDOVAL-distal LAD, RGS-distal RCA and OM, RGS from OM -1st and 2nd Diag - stable; On Bblocker, ASA and Statin. 2. HTN - stable with bblocker. 3. Dyslipidemia - On statin 4. JOSIAH/CKD 2 - Improved 5. Hx of Ovarian Cancer 6. Low Hgb level - 10.0 today; the pt denied any symptoms at this time. MAR reviewed * From Cardiac standpoint, the pt is stable to d/c home. The pt will stay with her daughter in [place]. * The pt will f/u with Dr Montanez' office within 2-4wks. * Discharge med to home: ASA 325mg qd, Metoprolol 25mg BID, Lipitor 20mg qd. Review of Systems - Review of Systems Constitutional: reports: no symptoms reported EENTM: reports: no symptoms reported Respiratory: reports: no symptoms reported Cardiac (ROS): reports: no symptoms reported ABD/GI: reports: no symptoms reported : reports: no symptoms reported
--- NOTE | 2017-06-09 09:42 | PDOC.PN ---
- Subjective Encounter Start Date: 06/09/17 Encounter Start Time: 07:40 Patient seen and examined. No new complaints. No overnight events - Objective Resuscitation Status: Resuscitation Status FULL:Full Resuscitation MAR Reviewed: Yes Vital Signs & Weight: Vital Signs (12 hours) Temp Pulse Resp BP Pulse Ox 06/09/17 08:02 98.1 F 96 16 94 L 06/09/17 07:51 98.1 F 96 16 127/75 94 L 06/09/17 04:00 98.2 F 88 20 122/69 92 L Weight Weight 161 lb Most Recent Monitor Data Heart Rate from ECG 86 NIBP 92/46 NIBP BP-Mean 72 Respiration from ECG 16 SpO2 92 I&O: 06/08/17 06/09/17 06/10/17 06:59 06:59 06:59 Intake Total 400 850 Output Total 1800 4050 Balance -1400 -3200 Result Diagrams: 06/07/17 04:37 06/09/17 04:51 Additional Labs: Accuchecks 06/09/17 06/08/17 06/08/17 06:07 20:32 17:06 POC Glucose 137 H 118 H 147 H 06/08/17 11:03 POC Glucose 128 H EKG Reviewed by me: Yes Phys Exam - Physical Examination Constitutional: NAD HEENT: PERRLA, moist MMs, sclera anicteric Neck: no JVD, supple Respiratory: no wheezing, no rales, no rhonchi Cardiovascular: RRR, no significant murmur, no rub Gastrointestinal: soft, non-tender, no distention, positive bowel sounds Musculoskeletal: no edema, pulses present Neurological: non-focal, normal sensation, moves all 4 limbs Lymphatic: no nodes Psychiatric: normal affect, A&O x 3 Skin: no rash, normal turgor Dx/Plan (1) Acute renal failure superimposed on stage 2 chronic kidney disease Code(s): N17.9 - ACUTE KIDNEY FAILURE, UNSPECIFIED; N18.2 - CHRONIC KIDNEY DISEASE, STAGE 2 (MILD) Status: Acute (2) Anemia, blood loss Code(s): D50.0 - IRON DEFICIENCY ANEMIA SECONDARY TO BLOOD LOSS (CHRONIC) Status: Acute (3) NSTEMI (non-ST elevated myocardial infarction) Code(s): I21.4 - NON-ST ELEVATION (NSTEMI) MYOCARDIAL INFARCTION Status: Acute (4) S/P CABG x 5 Code(s): Z95.1 - PRESENCE OF AORTOCORONARY BYPASS GRAFT Status: Acute (5) Dyslipidemia Code(s): E78.5 - HYPERLIPIDEMIA, UNSPECIFIED Status: Chronic (6) H/O ovarian cancer Status: Chronic (7) Hypertension Code(s): I10 - ESSENTIAL (PRIMARY) HYPERTENSION Status: Chronic - Plan cont current plan of care * medication reviewed as below * symptomatic treatment * see discharge simin. Review of Systems - Review of Systems Eyes: negative: Pain, Vision Change, Conjunctivae Inflammation, Eyelid Inflammation, Redness, Other ENT: negative: Ear Pain, Ear Discharge, Nose Pain, Nose Discharge, Nose Congestion, Mouth Pain, Mouth Swelling, Throat Pain, Throat Swelling, Other Respiratory: negative: Cough, Dry, Shortness of Breath, Hemoptysis, SOB with Excertion, Pleuritic Pain, Sputum, Wheezing Cardiovascular: negative: chest pain, palpitations, orthopnea, paroxysmal nocturnal dyspnea, edema, light headedness, other Gastrointestinal: negative: Nausea, Vomiting, Abdominal Pain, Diarrhea, Constipation, Melena, Hematochezia, Other Genitourinary: negative: Dysuria, Frequency, Incontinence, Hematuria, Retention , Other Musculoskeletal: negative: Neck Pain, Shoulder Pain, Arm Pain, Back Pain, Hand Pain, Leg Pain, Foot Pain, Other Skin: negative: Rash, Lesions, Luther, Bruising, Other - Medications/Allergies Allergies/Adverse Reactions: Allergies Allergy/AdvReac Type Severity Reaction Status Date / Time No Known Drug Allergies Allergy Verified 06/02/17 17:08 Medications: Current Medications Acetaminophen (Tylenol) 650 mg PO Q6H PRN PRN Reason: Headache/Fever Or Mild Pain Hydrocodone Bitart/Acetaminophen ([place] 5/325) 1 tab PO Q4H PRN PRN Reason: Moderate Pain (4-6) Last Admin: 06/06/17 09:56 Dose: 1 tab Hydrocodone Bitart/Acetaminophen ([place] 5/325) 2 tab PO Q4H PRN PRN Reason: Severe Pain (7-10) Last Admin: 06/09/17 03:22 Dose: 2 tab Al Hydroxide/Mg Hydroxide (Maalox) 30 ml PO Q4H PRN PRN Reason: Indigestion Albuterol/Ipratropium (Duoneb) 3 ml NEB [id number] PRN PRN Reason: SHORTNESS OF BREATH Aspirin (Aspirin) 325 mg PO DAILY [facility] Last Admin: 06/09/17 07:53 Dose: 325 mg Atorvastatin Calcium (Lipitor) 20 mg PO HS [facility] Last Admin: 06/08/17 21:19 Dose: 20 mg Bisacodyl (Dulcolax) 10 mg PO Q12H PRN PRN Reason: Constipation Last Admin: 06/07/17 09:08 Dose: 10 mg Bisacodyl (Dulcolax) 10 mg OK Q12H PRN PRN Reason: Constipation Famotidine (Pepcid) 20 mg PO Q12HR [facility] Last Admin: 06/09/17 07:53 Dose: 20 mg Metoprolol Tartrate (Lopressor) 25 mg PO BID [facility] Last Admin: 06/09/17 07:53 Dose: 25 mg Ondansetron HCl (Zofran) 4 mg IVP Q6H PRN PRN Reason: Nausea/Vomiting Polyethylene Glycol (Miralax) 17 gm PO DAILY [facility] Last Admin: 06/09/17 07:54 Dose: 17 gm Potassium Chloride (K-Dur) 20 meq PO QAM-WM [facility] Stop: 06/10/17 08:01 Last Admin: 06/09/17 07:53 Dose: 20 meq Senna/Docusate Sodium (Senokot S) 1 tab PO BID [facility] Last Admin: 06/09/17 07:54 Dose: 1 tab Sodium Chloride (Flush - Normal Saline) 10 ml IVF Q12HR [facility] Last Admin: 06/09/17 07:54 Dose: 10 ml Sodium Chloride (Flush - Normal Saline) 10 ml IVF PRN PRN PRN Reason: Saline Flush
[2017-06-09 11:10] VITALS: BP 139/65
--- NOTE | 2017-06-09 13:50 | DIS ---
DATE OF ADMISSION: 06/02/2017 DATE OF DISCHARGE: 06/09/2017 PRIMARY CARE PHYSICIAN: [facility] call admission. DISCHARGE DISPOSITION: Home. PRIMARY DISCHARGE DIAGNOSES: Non-ST elevation myocardial infarction, multivessel coronary artery dis ease, status post CABG, anemia due to acute blood loss, acute kidney failure on superimposed stage II chronic kidney disease. SECONDARY DISCHARGE DIAGNOSES: History of ovarian cancer, hypertension and dyslipidemia. PRIMARY PROCEDURE/OPERATION: Cardiac catheterization was performed by Dr. Montanez, found with multivess el CAD. Dr. Sher did CABG. RADIOLOGICAL INVESTIGATION: Chest x-ray and echocardiography showed EF 55%-60% and diastolic dysfunc tion. SIGNIFICANT LABORATORY DATA: Hemoglobin 10.0, INR 1.5, and creatinine 0.74. DISCHARGE MEDICATIONS: Aspirin 325 mg p.o. daily, Lipitor 20 mg p.o. at bedtime, Pepcid 20 mg p.o. b .i.d., Lasix 40 mg p.o. daily for 7 days, [place] 10 one half to 2 tablets p.o. q.4 hourly p.r.n., meto prolol 25 mg twice daily, MiraLax 17 grams p.o. daily, potassium chloride 20 mEq p.o. daily for 7 day s. CONTRAINDICATIONS: None. CODE STATUS: FULL CODE. INPATIENT CONSULTANTS: Cardiology Group was following while in hospital. Cardiovascular Surgeon Stefani up was following while in hospital and [facility] was also following while in hospital. TEST RESULTS PENDING ON DISCHARGE: None. ALLERGIES: No known drug allergy. DISCHARGE PLAN: Post hospital, patient will follow up with primary care physician, Dr. Belle Medellin in 10 days and patient has appointment with Cardiology on 06/17/2017 at 10:45 a.m. The patient will follow up with cardiac rehabilitation. HOSPITAL COURSE: A 77-year-old female with above-mentioned medical problem who was admitted by Dr. Lorenzo hoover on 06/02/2017. Please see his H&P for further detail. The patient was having typical anginal c hest pain and she was diagnosed with non-ST elevation AK. The patient was consulted by Cardiology. Cardiology did cardiac catheterization and patient was found with multivessel coronary artery disease , nonemergent CABG was recommended. Dr. Sher did CABG while in hospital. She required CABG x 5 on 06/04/2017. Post surgery, patient stayed in ICU. At that time, [facility]monary [facility] was following a s well. Subsequently, upon stabilization, patient was transferred to telemetry floor. She was remai colleen relatively hypoxic and that is why patient was given 7 days of Lasix. The patient's oxygen satu ration improved by the time of discharge. Her surgical site is clean and healthy. The patient is on room air, tolerating p.o. well, ambulatory and without any complications. Dr. Medina angela cleared her for discharge. We sent all new medication prescriptions to her pharmacy as above . The patient is clinically stable for discharge. The patient is seen and examined at bedside today. Please see my progress note from today for further detail.
== END 2017-06-09 11:00 | disposition home or self-care (01) | DRG 234 ==
LOC: SCSER 13:19 → 2NO 14:18 → CCU 06-04 07:17 → 2NO 06-05 17:08
PROVIDERS: ADMIT Internal Medicine; ATTEND Internal Medicine
PROC: 5A1221Z Performance of Cardiac Output, Continuous (ICD-10-PCS; 2017-06-03)
PROC: B2111ZZ Fluoroscopy of Multiple Coronary Arteries using Low Osmolar Contrast (ICD-10-PCS; 2017-06-03)
PROC: 02100Z9 Bypass Coronary Artery, One Artery from Left Internal Mammary, Open Approach (ICD-10-PCS; principal; 2017-06-04)
PROC: 4A023N7 Measurement of Cardiac Sampling and Pressure, Left Heart, Percutaneous Approach (ICD-10-PCS; 2017-06-04)
PROC: 0213093 Bypass Coronary Artery, Four or More Arteries from Coronary Artery with Autologous Venous Tissue, Open Approach (ICD-10-PCS; 2017-06-04)
PROC: 06BQ4ZZ Excision of Left Saphenous Vein, Percutaneous Endoscopic Approach (ICD-10-PCS; 2017-06-04)
PROC: 05H633Z Insertion of Infusion Device into Left Subclavian Vein, Percutaneous Approach (ICD-10-PCS; 2017-06-04)
DX: I21.4 Non-ST elevation (NSTEMI) myocardial infarction (principal); N17.9 Acute kidney failure, unspecified; D62 Acute posthemorrhagic anemia; I47.1 Supraventricular tachycardia; I25.10 Atherosclerotic heart disease of native coronary artery without angina pectoris; I12.9 Hypertensive chronic kidney disease with stage 1 through stage 4 chronic kidney disease, or unspecified chronic kidney disease; N18.2 Chronic kidney disease, stage 2 (mild); E78.5 Hyperlipidemia, unspecified; Z90.710 Acquired absence of both cervix and uterus; Z85.43 Personal history of malignant neoplasm of ovary
CPT/HCPCS: 36415; 36416; 36430; 71045; 80048; 80053; 80061; 82553; 82805; 83735; 83880; 84484; 85025; 85379; 85610; 85730; 86850; 86900; 86901; 93005; 93010; 93306; 93458; 93798; 94002; 94003; 94150; 94760; 96372; A4216; C1769; J1644; J1650; J1815; J1885; J2001; J2250; J2270; J2370; J2440; J2704; J3010; J3475; J3480; J7050; P9016; P9045; S0017